=== PATIENT | female | born 1955 | race Caucasian/White ===

== ENCOUNTER → 2016-12-03 | Outpatient (CLI) | payer BC ==
--- NOTE | 2016-12-03 15:18 | MAMMOGRAPHY REPORT ---
BILATERAL DIGITAL SCREENING MAMMOGRAM TOMOSYNTHESIS WITH CAD: 12/03/2016 TECHNIQUE: Breast tomosynthesis in addition to standard 2D mammography was performed. Current study was also evaluated with a Computer Aided Detection (CAD) system. COMPARISON: Comparison is made to exams dated: 12/03/2015 mammogram, 11/29/2014 mammogram, 11/28/2013 m ammogram, 11/25/2012 mammogram, 11/24/2011 mammogram, and 11/21/2010 mammogram - [facility] nter. BREAST COMPOSITION: The tissue of both breasts is heterogeneously dense, which may obscure small mas ses. FINDINGS: No suspicious masses, calcifications, or areas of architectural distortion are noted in ei ther breast. There has been no significant interval change compared to prior exams. IMPRESSION: ACR BI-RADS CATEGORY 1: NEGATIVE There is no mammographic evidence of malignancy. A 1 year screening mammogram is recommended. The pa tient will receive written notification of the results. Approximately 10% of breast cancers are not detected with mammography. A negative mammographic report should not delay biopsy if a clinically suggestive mass is present. Shira Ellison M.D. /:12/03/2016 11:13:57 Wood Room Hand: Jo Ann MATIAS(Laisha)(M), [facility] letter sent: Normal 1/2 BI-RADS Code: ACR BI-RADS Category 1: Negative
== END | disposition home or self-care (01) ==
LOC: C.MAMM 09:59
PROVIDERS: ATTEND Family Medicine
DX: Z12.31 Encounter for screening mammogram for malignant neoplasm of breast (principal)

== ENCOUNTER 2018-03-26 10:35 | Inpatient (IN) ==
--- NOTE | 2018-03-03 13:52 | Anesthesiology Consultation ---
Date of Service March 03, 2018 Assessment & Plan (1) Encounter for pre-operative examination: Chart Review Chart Review: Acceptable Risk for Surgery and Patient seen in Pre Admission Testing Teaching & Discussion Instructed NPO after midnight before surgery, except medications with 15 cc of water. Medication instructions provided according to the PAT guidelines. History Surgery Operation Date: 03/26/18 10:40 Proposed Procedures p Right Total Shoulder Arthroplasty - Jeremías Kang, Height/Weight Height: 5 ft 6 in Weight: 80.1 kg Allergies Allergy/AdvReac Type Severity Reaction Status Date / Time codeine AdvReac NAUSEA/DIZZ Verified 02/26/18 15:04 Y Medications Home Medications Medication Instructions Recorded Confirmed Last Taken amlodipine 5 mg tablet 5 mg PO QAM 12/31/17 02/26/18 Unknown aspirin 81 mg tablet,delayed 81 mg PO DAILY 12/31/17 02/26/18 Unknown release atorvastatin 40 mg tablet 40 mg PO HS 12/31/17 02/26/18 Unknown calcium carbonate-vitamin D3 600 1 tab PO BID 12/31/17 02/26/18 Unknown mg (1,500 mg)-800 unit tablet cholecalciferol (vitamin D3) 2,000 2,000 units PO DAILY 12/31/17 02/26/18 Unknown unit capsule cyclosporine 0.05 % eye drops in a 1 drops OP Q12H 12/31/17 02/26/18 Unknown dropperette fish oil 1,200 mg PO DAILY 12/31/17 02/26/18 Unknown levothyroxine 125 mcg capsule 125 mcg PO QAM 12/31/17 02/26/18 Unknown losartan 100 mg tablet 100 mg PO QAM 12/31/17 02/26/18 Unknown meloxicam 7.5 mg tablet 7.5 mg PO QAM 12/31/17 02/26/18 Unknown metoprolol succinate ER 50 mg 75 mg PO QAM tab 12/31/17 02/26/18 Unknown tablet,extended release 24 hr omeprazole magnesium 20 mg 20 mg PO QAM 12/31/17 02/26/18 Unknown tablet,delayed release ropinirole 4 mg tablet 4 mg PO HS tab 12/31/17 02/26/18 Unknown Flovent Inhaler 1 puff INHALATION UD PRN 02/26/18 02/26/18 Unknown multivitamin [Multiple Vitamins] 1 tab PO DAILY 02/26/18 02/26/18 Unknown vit C,S-Bd-ftuqc-lutein-zeaxan 1 tab PO BID 02/26/18 02/26/18 Unknown [PreserVision AREDS-2] Past Medical History Medical History GERD (gastroesophageal reflux disease) (Chronic) High cholesterol (Chronic) Restless leg syndrome (Chronic) Arthritis BACK Asthma ONLY USES INHALER BEFORE EXERCISE Back problem CORTISONE INJECTION 02/17/18 History of prolonged Q-T interval on ECG Hypertension Hypothyroidism Nausea and vomiting after administration of anesthetic agent Spinal stenosis "MILD" Past Family History Family History Brother Family history of Hodgkin's lymphoma Past Surgical History Surgical History History of Achilles tendon repair & NERVE DECOMPRESSION History of arthroscopy of right knee History of bone graft TIB/FIB History of hammertoe correction History of surgery on extremity L LEG/TIB FIB FX... HAD ALFA PLACED History of surgery on extremity L LEG LENGHTENED/EX FIX AND SINCE REMOVED -- NEEDED SUBSEQUENT TO TIB/FIB FX REPAIR. History of thumb surgery Past Anesthesia History No Hx of Anesthesia Complications (OTHER THAN PONV) and No Family Hx of Anesthesia Complications History of PONV Yes Motion Sickness Screening History of Motion Sickness: No Social History Smoking Status: Never smoker Do You Dip or Chew Tobacco: No Hx Alcohol Use: No Hx Substance Use: No Exercise / Class Metabolic Activity II 4-5 Yardwork/Stairs/Walk up hill Review of Systems Pt denies any recent chest pain, shortness of breath, palpitations, cough, fever or URI. Physical Exam Vital Signs BP: 168/89 (pt is visibly anxious) P: 85 bpm SPO2: 98% RA T: 97.8 F R: 16 ENMT Mouth: + dental bridge (upper R molars) and + dental restorations (crowns); no chipped teeth and no loose teeth Thyromental Distance: < 3.5 Finger Breadths (3) Mallampati Class: IV (III-IV) Neck normal visual inspection; neck extension not limited Respiratory normal respiratory effort Auscultation: lungs clear to auscultation bilaterally Cardiovascular Rate/Rhythm: regular rate and regular rhythm Heart Sounds: no murmur Vessels: no carotid bruit Extremities: no edema Testing Electrocardiogram Date: 03/03/18 NSST abnormality. Abnormal QRS angle, consider primary TWA. Chest X-Ray Date: 03/03/18 Findings: + NAD Laboratory Results 03/03/18 13:32 03/03/18 13:32 Blood Type O Positive 03/03/18 13:32 Antibody Screen NEGATIVE 03/03/18 13:32 PT 10.0 Seconds (9.0-12.0) 03/03/18 13:32 INR 1.0 (0.9-1.1) 03/03/18 13:32 APTT 25.9 Seconds (21.0-31.0) 03/03/18 13:32
--- NOTE | 2018-03-03 14:05 | PAT Medication Instructions ---
Medication Instructions Date of Service March 03, 2018 Home Medications amlodipine 5 mg tablet 5 mg PO QAM aspirin 81 mg tablet 81 mg PO DAILY atorvastatin 40 mg tablet 40 mg PO HS calcium carbonate-vitamin D3 600 1 tab PO BID cholecalciferol (vitamin D3) 2,000 2,000 units PO DAILY cyclosporine 0.05 % eye drops in a 1 drops OP Q12H fish oil 1,200 mg PO DAILY levothyroxine 125 mcg capsule 125 mcg PO QAM losartan 100 mg tablet 100 mg PO QAM meloxicam 7.5 mg tablet 7.5 mg PO QAM metoprolol succinate ER 50 mg 75 mg PO QAM tab omeprazole magnesium 20 mg 20 mg PO QAM ropinirole 4 mg tablet 4 mg PO HS tab Flovent Inhaler 1 puff INHALATION UD PRN multivitamin [Multiple Vitamins] 1 tab PO DAILY [PreserVision AREDS-2] 1 tab PO BID STOP taking 2 weeks before surgery fish oil 1,200 mg PO DAILY [PreserVision AREDS-2] 1 tab PO BID STOP taking 24 hours before surgery ropinirole 4 mg tablet 4 mg PO HS tab DO NOT take the morning of surgery calcium carbonate-vitamin D3 600 1 tab PO BID cholecalciferol (vitamin D3) 2,000 2,000 units PO DAILY losartan 100 mg tablet 100 mg PO QAM multivitamin [Multiple Vitamins] 1 tab PO DAILY Take morning of surgery With a small sip of water, OTHERWISE NOTHING TO EAT OR DRINK AFTER MIDNIGHT: amlodipine 5 mg tablet 5 mg PO QAM aspirin 81 mg tablet 81 mg PO DAILY cyclosporine 0.05 % eye drops in a 1 drops OP Q12H levothyroxine 125 mcg capsule 125 mcg PO QAM metoprolol succinate ER 50 mg 75 mg PO QAM tab omeprazole magnesium 20 mg 20 mg PO QAM Flovent Inhaler 1 puff INHALATION UD PRN (if needed) Take evening before surgery atorvastatin 40 mg tablet 40 mg PO HS calcium carbonate-vitamin D3 600 1 tab PO BID cyclosporine 0.05 % eye drops in a 1 drops OP Q12H Other Notes If you have any questions please call us at [phone] or [phone] or [phone] or [phone]
[2018-03-03 14:29] LABS: Basophils # (auto) 0.02 K/uL (0-0.2); Basophils % (auto) 0.2 %; Eosinophils # (auto) 0.06 K/uL (0-0.5); Eosinophils % (auto) 0.5 %; Hematocrit (blood only) 46.4 % (37-47); Hemoglobin 15.4 g/dL (12.0-16.0); Immature Granulocytes # (auto) 0.04 K/uL (0.00-0.02); Immature Granulocytes % (auto) 0.4 %; Lymphocytes % (auto) 25.6 %; Mean Corpuscular Hgb Conc 33.2 g/dL (32-36); Mean Corpuscular Volume 93.9 fL (80-100); Mean Platelet Volume 10.3 fL (7.4-10.4); Monocytes # (auto) 0.74 K/uL (0.11-0.59); Monocytes % (auto) 6.5 %; Neutrophils # (auto) 7.55 K/uL (1.4-6.5); Neutrophils % (auto) 66.8 %; Platelet Count 263 K/uL (130-400); RDW Coefficient of Variation 13.1 % (11.5-14.5); RDW Standard Deviation 44.9 fL (36.4-46.3); Red Blood Count 4.94 M/uL (4.2-5.4); White Blood Count 11.31 K/uL (4.8-10.8)
--- NOTE | 2018-03-03 14:29 | XRay Report ---
TWO VIEW CHEST CLINICAL HISTORY: Preoperative examination. FINDINGS: PA and lateral chest radiographs are obtained. No prior studies are available for compariso n at the time of dictation. The cardiomediastinal silhouette is unremarkable. The lungs and pleural spaces are clear. There is no pneumothorax. The skeletal structures are osteopenic. The bony thorax a ppears intact. IMPRESSION: No active disease in the chest. Electronically signed by: Lex Romo M.D. 03/03/2018 2:27 PM
[2018-03-03 14:38] LABS: Partial Thromboplastin Time 25.9 Seconds (21.0-31.0)
[2018-03-03 16:17] LABS: BUN Creatinine Ratio 28.4 (10-20); Calcium 9.2 mg/dl (8.5-10.1); Creatinine Clr Calc Pharmacy 77.8 ml/min; Est GFR (African American) 93.1; Est GFR (Non-African American) 80.3; Potassium 3.7 mmol/L (3.5-5.1)
--- NOTE | 2018-03-25 06:47 | History & Physical Report ---
Date of Service March 25, 2018 Assessment & Plan (1) Primary osteoarthritis of right shoulder: We will proceed with a right total shoulder arthroplasty. Postoperatively she will be kept overnight at the hospital for postoperative medical management. She plans to use energy physical therapy upon discharge. Present on Admission?: Yes History of Present Illness Primary Care Provider: Quyen Helton Jacqueline Butcher is a pleasant 63-year-old female who is been dealing with chronic increasing right shoulder pain. Is been really bothering her for the last 6 months. MRI and clinical examination were diagnostic for advanced arthritis of the right shoulder. The MRI images looked much worse and the x-rays looked. After failing conservative treatment she has elected to proceed with a right total shoulder arthroplasty. Allergies Allergy/AdvReac Type Severity Reaction Status Date / Time codeine AdvReac NAUSEA/DIZZ Verified 03/22/18 08:11 Y Home Medications Home Medications Medication Instructions Recorded Confirmed Type amlodipine 5 mg tablet 5 mg PO QAM 12/31/17 03/22/18 History aspirin 81 mg tablet,delayed 81 mg PO DAILY 12/31/17 03/22/18 History release atorvastatin 40 mg tablet 40 mg PO HS 12/31/17 03/22/18 History calcium carbonate-vitamin D3 600 1 tab PO BID 12/31/17 03/22/18 History mg (1,500 mg)-800 unit tablet cholecalciferol (vitamin D3) 2,000 2,000 units PO DAILY 12/31/17 03/22/18 History unit capsule cyclosporine 0.05 % eye drops in a 1 drops OP Q12H 12/31/17 03/22/18 History dropperette fish oil 1,200 mg PO DAILY 12/31/17 03/22/18 History levothyroxine 125 mcg capsule 125 mcg PO QAM 12/31/17 03/22/18 History losartan 100 mg tablet 100 mg PO QAM 12/31/17 03/22/18 History meloxicam 7.5 mg tablet 7.5 mg PO QAM 12/31/17 03/22/18 History metoprolol succinate ER 50 mg 75 mg PO QAM tab 12/31/17 03/22/18 History tablet,extended release 24 hr omeprazole magnesium 20 mg 20 mg PO QAM 12/31/17 03/22/18 History tablet,delayed release ropinirole 4 mg tablet 4 mg PO HS tab 12/31/17 03/22/18 History Flovent Inhaler 1 puff INHALATION UD PRN 02/26/18 03/22/18 History multivitamin [Multiple Vitamins] 1 tab PO DAILY 02/26/18 03/22/18 History vit C,F-Se-ldqxc-lutein-zeaxan 1 tab PO BID 02/26/18 03/22/18 History [PreserVision AREDS-2] Past Med/Surg History Medical History GERD (gastroesophageal reflux disease) (Chronic) High cholesterol (Chronic) Restless leg syndrome (Chronic) Arthritis BACK Asthma ONLY USES INHALER BEFORE EXERCISE Back problem CORTISONE INJECTION 02/17/18 History of prolonged Q-T interval on ECG Hypertension Hypothyroidism Spinal stenosis "MILD" Surgical History History of Achilles tendon repair & NERVE DECOMPRESSION History of arthroscopy of right knee History of bone graft TIB/FIB History of hammertoe correction History of surgery on extremity L LEG/TIB FIB FX... HAD ALFA PLACED History of surgery on extremity L LEG LENGHTENED/EX FIX AND SINCE REMOVED -- NEEDED SUBSEQUENT TO TIB/FIB FX REPAIR. History of thumb surgery Nausea and vomiting after administration of anesthetic agent Family History Brother Family history of Hodgkin's lymphoma Social History marital status: Current Living Situation: Spouse and Other Current Living Situation Comment: DAUGHTER (WITH DOWN SYNDROME) current occupational status: retired Feels Safe at Home: Yes Smoking Status: Never smoker Hx Alcohol Use: No Hx Substance Use: No Beliefs That Will Affect Care: None Preferred Language: Yi Communication Ability: Effective
[~2018-03-26 10:35] MED LIST: ACETAMINOPHEN 500 MG TAB PO SCH; CEFAZOLIN 2000MG 2,000 MG/15 ML SYR IV SCH; FAMOTIDINE 20 MG TAB PO SCH; GABAPENTIN 300 MG x 2 PO SCH; LR 15ML/HR IV SCH; LR 60ML/HR IV SCH; ROPIVACAINE 0.5% 5 MG/ML 30 ML VIAL ONE; ROPIVACAINE 0.5% HCL/PF 150 MG, BUPIVACAINE 0.5% MPF 30 ML, EPINEPHrine 30MG/30ML (OR U... INFIL SCH; TRANEXAMIC ACID 1,000 MG **IV Intra-op IV SCH; TRANEXAMIC ACID 1,000 MG **IV Pre-op IV SCH
[2018-03-26] MEDS ORDERED: LIDOCAINE HCL 2% 2 ML VIAL/AMP(20MG/ML) INFIL ONE (11:36)
[2018-03-26] MEDS ORDERED: PROPOFOL IV EMULSION 10 MG/ML 20 ML VIAL IV ONE (11:36)
[2018-03-26] MEDS ORDERED: MIDAZOLAM HCL 1 MG/ML 2ML VIAL ONE (11:37)
[2018-03-26] MEDS ORDERED: fentaNYL citrate 100 MCG/2 ML VIAL ONE (11:37)
--- NOTE | 2018-03-26 11:49 | History & Physical Bridge Note ---
Date of Service March 26, 2018 History & Physical Bridge Note I have examined the patient, reviewed the History & Physical and in the interval since the performance of the History & Physical I have noted the following changes of clinical significance: no changes noted
[2018-03-26] MEDS ORDERED: ORTHO JOINT ANESTHETIC ONE (12:06)
[2018-03-26] MEDS ORDERED: POVIDONE-IODINE OP SOLN 30 ML BTL ONE (12:07)
[2018-03-26] MEDS ORDERED: ePHEDrine sulfate 50 MG/ML AMP IV PRN (12:19)
[2018-03-26] MEDS ORDERED: fentaNYL citrate 100 MCG/2 ML VIAL IV PRN (12:19)
[2018-03-26] MEDS ORDERED: ONDANSETRON INJ 2 MG/ML 2 ML VIAL IV PRN ×2 (12:19→16:38)
[2018-03-26] MEDS ORDERED: ATROPINE SULFATE 0.1 MG/ML 10ML SYR IV PRN (12:19)
[2018-03-26] MEDS ORDERED: SCOPOLAMINE 1.5 MG TDSY TD ONE (12:31)
[2018-03-26] MEDS ORDERED: SCOPOLAMINE 1.5 MG TDSY ONE (12:31)
[2018-03-26] MEDS ORDERED: SODIUM CHLORIDE 0.9% INJ 10 ML VIAL ONE (13:55)
[2018-03-26] MEDS ORDERED: PHENYLEPHRINE 100MCG/ML 5ML SYR ONE (13:55)
[2018-03-26] MEDS ORDERED: ePHEDrine sulfate 50 MG/ML AMP ONE (13:55)
[2018-03-26] MEDS ORDERED: GLYCOPYRROLATE 0.2 MG/ML VIAL ONE (14:30)
[2018-03-26] MEDS ORDERED: ROCURONIUM BROMIDE 10 MG/ML 5 ML VIAL ONE (14:30)
[2018-03-26] MEDS ORDERED: NEOSTIGMINE METHYLSULFATE 5 MG/5 ML SYR ONE (14:30)
--- NOTE | 2018-03-26 14:43 | Operative Report ---
Post Operative Report Pre & Post Diagnosis Operation Date: 03/26/18 13:00 Pre-Op Diagnosis: Right Shoulder Degenerative Joint Disease Post-Op Diagnosis: Right Shoulder Degenerative Joint Disease Procedure Operation Date: 03/26/18 13:00 Actual Procedures p Right Total Shoulder Replacement--Cemented(Right) - Jeremías Kang DO Surgeon Jeremías Kang DO Compensation Director Jeremías Dong PAC Estimated Blood Loss 250 Findings Consistent with Post-Op Diagnosis Specimens Right humeral head Complications none Disposition Disposition: Recovery Room Indications Guadalupe is a pleasant 63-year-old female who presented my office with a 6-month history of increasing right shoulder pain. MRI and clinical examination were diagnostic for primary osteoarthritis of the right shoulder. After failing conservative treatment, she elected to proceed with a right total shoulder arthroplasty. Description of Procedure Implants used: I used a Biomet Comprehensive total shoulder arthroplasty system with a size 8 press fit mini humeral stem, a size 42 x 21 eccentric humeral head, and a small size glenoid with a Regenerex peg. The glenoid was cemented in place with Palacos G cement. The patient arrived at [facility] for the above procedure. There were seen in the preoperative holding area and the operative extremity was identified and signed. They were given a preoperative antibiotic and an interscalene nerve block. They were taken back to the operating room, laid on table in supine position, and put under general anesthesia. They were then put into the beachchair position. The shoulder was then prepped and draped in sterile fashion. A timeout was done and the patient in the operative extremity was properly identified. A deltopectoral approach was used. Dissection was taken down through the fascia and the deltoid was retracted laterally and the conjoined tendon was retracted medially. The anterior shoulder was exposed. The long head of the biceps tendon was tenodesed to the upper border of the pectoralis major. The subscapularis was then released off the lesser tuberosity with a centimeter of cuff tissue remaining. The inferior capsule was released and the humeral head was dislocated. The rotator cuff was inspected and intact. A canal finding reamer was sent down the center of the humeral canal. Sequential reaming up to a size 8 reamer was done. Offset reamer a proximal humeral resection guide was placed. The proximal humerus was resected at 135 of inclination and 30 of retroversion. Inferior osteophytes were then removed and the glenoid was exposed. Time was spent doing an appropriate labral release. The glenoid measured to be a size small. A 3.2 mm Steinmann pin was placed in the central hole of the glenoid vault pin guide. The glenoid was then reamed with a propeller reamer. The central post cutter was then used to prepare for the central boss. The cannulated peripheral peg drill guide was then placed and 3 peg holes were drilled. The final size small glenoid was then cemented in place with Palacos G cement. Surrounding soft tissues were then injected with 100 cc of an orthopedic pain control cocktail. Once cement had dried the proximal humerus was once again exposed. Sequential broaching of the humerus up to a size 8 broach was done. Off that broach a size 42 x 21 eccentric humeral head was trialed. The shoulder was then reduced , brought through a full range of motion and felt to be stable. The shoulder was then dislocated and the broach was removed. The final size 8 mini humeral stem implant was then impacted into place. A size 42 x 21 eccentric humeral head was then impacted onto the humeral stem. The shoulder was then reduced and once again brought through a full range of motion and felt to be stable. The subscapularis was then tenodesed back to the lesser tuberosity with transosseous FiberWire sutures and side to side sutures with the arm in 45 of external rotation. 2 sutures were placed in the lateral rotator interval. A dilute betadyne lavage was then done for 3 minutes. The joint was then irrigated with normal saline solution. Hemostasis was obtained. The skin was then closed with 2-0 Vicryl, 3-0V lock suture, and doug. A soft dressing was placed as well as a regular arm sling. The patient was then extubated and transferred to a hospital bed. There were taken to the postanesthesia care unit in stable condition. The tolerated the procedure well. I attest to the content of the Intraoperative Record and any orders documented therein. Any exceptions are noted below.
--- NOTE | 2018-03-26 15:34 | XRay Report ---
XR shoulder RT min 2V routine CLINICAL HISTORY: Post shoulder surgery COMPARISON: None. DISCUSSION: There are postsurgical changes of a total right shoulder arthroplasty. There are overlyin g skin doug. There is no dislocation. There is air within the soft tissues consistent with recent surgery. IMPRESSION: Postsurgical changes of a total right shoulder arthroplasty. No evidence of dislocation. Electronically signed by: Derek Zimmerman M.D. 03/26/2018 3:33 PM
[2018-03-26] MEDS ORDERED: METOCLOPRAMIDE HCL INJ 5 MG/ML 2 ML VIAL ONE (15:38)
[2018-03-26] MEDS ORDERED: METOCLOPRAMIDE HCL INJ 5 MG/ML 2 ML VIAL IV PRN ×2 (15:43→16:38)
--- NOTE | 2018-03-26 16:32 | Anesthesiology Progress Note ---
Date of Service March 26, 2018 Anesthesia Post Procedure Vital Signs Vital Signs: Temp Pulse Pulse Resp BP Pulse Ox 03/26/18 16:00 69 13 118/66 95 03/26/18 15:50 97.2 F L 72 16 134/75 98 03/26/18 15:40 86 18 157/80 H 93 03/26/18 15:30 85 17 157/84 H 94 03/26/18 15:20 93 H 19 167/90 H 100 03/26/18 15:10 97.0 F L 104 H 15 170/109 H 100 03/26/18 11:38 97.7 F 85 18 149/93 H 97 Pain Intensity Right Shoulder: Pain Intensity: 5 Notes Mental Status: alert / awake / arousable and participated in evaluation Patient Amnestic to Procedure: Yes Nausea / Vomiting: adequately controlled Pain: adequately controlled Airway Patency, RR, SpO2: stable & adequate BP & HR: stable & adequate Hydration State: stable & adequate Anesthetic Complications: no major complications apparent and Pt Satisfied with anesthetic care
[2018-03-26] MEDS ORDERED: MoRPHine SULFATE 2 MG/ML CARP IV PRN (16:38)
[2018-03-26] MEDS ORDERED: BISACODYL 10 MG SUPP PR PRN (16:38)
[2018-03-26] MEDS ORDERED: POLYETHYLENE (MIRALAX) 17 GM PACK PO PRN (16:38)
[2018-03-26] MEDS ORDERED: MAGNESIUM HYDROXIDE SUSP 30 ML UDC PO PRN (16:38)
[2018-03-26] MEDS ORDERED: TRAMADOL HCL 50 MG TABLET PO PRN (16:38)
[2018-03-26] MEDS ORDERED: FLUTICASONE HFA 110MCG INHALER INH PRN (17:15)
[2018-03-26] MEDS: KETOROLAC TROMETHAMINE 15 MG/ML VIAL IV SCH ×2 (17:46→23:34)
[2018-03-26] MEDS: POTASSIUM CHLORIDE 10 MEQ in SODIUM CHLORIDE 0.9% 1000ML 1,000 ML IV SCH (17:46)
[2018-03-26] MEDS: CHECK SCOPOLAMINE PATCH PLACEMENT SCH ×2 (17:46→23:33)
[2018-03-26] MEDS ORDERED: ROPINIROLE HCL 1 MG TABLET PO SCH (18:00)
[2018-03-26] MEDS: CEFAZOLIN 2000MG 2,000 MG/15 ML SYR IV SCH (20:36)
[2018-03-26] MEDS: ACETAMINOPHEN 500 MG TAB PO SCH (20:41)
[2018-03-26] MEDS: DOCUSATE SODIUM 100 MG CAP PO SCH (20:41)
[2018-03-26] MEDS ORDERED: SENNA 8.6 MG TAB PO SCH (21:00)
[2018-03-26] MEDS ORDERED: ATORVASTATIN 40 MG TAB PO SCH (21:00)
[2018-03-26] MEDS: RESTASIS: ORDER AWAITING ACTION SCH (23:33)
[2018-03-27] MEDS: KETOROLAC TROMETHAMINE 15 MG/ML VIAL IV SCH (05:16)
[2018-03-27] MEDS: CEFAZOLIN 2000MG 2,000 MG/15 ML SYR IV SCH (05:20)
[2018-03-27] MEDS: ACETAMINOPHEN 500 MG TAB PO SCH (05:22)
[2018-03-27] MEDS: POTASSIUM CHLORIDE 10 MEQ in SODIUM CHLORIDE 0.9% 1000ML 1,000 ML IV SCH (05:23)
[2018-03-27] MEDS ORDERED: COUGH DROP (SUGAR FREE) LOZ 24 LOZ/1 BOX BUCCAL PRN (05:28)
[2018-03-27 06:08] LABS: Hematocrit (blood only) 38.3 % (37-47); Hemoglobin 12.7 g/dL (12.0-16.0); Immature Granulocytes # (auto) 0.02 K/uL (0.00-0.02); Immature Granulocytes % (auto) 0.3 %; Lymphocytes # (auto) 0.56 K/uL (1.2-3.4); Lymphocytes % (auto) 7.4 %; Mean Corpuscular Hgb Conc 33.2 g/dL (32-36); Mean Corpuscular Volume 93.4 fL (80-100); Mean Platelet Volume 9.4 fL (7.4-10.4); Monocytes # (auto) 0.36 K/uL (0.11-0.59); Monocytes % (auto) 4.8 %; Neutrophils # (auto) 6.61 K/uL (1.4-6.5); Neutrophils % (auto) 87.5 %; Platelet Count 177 K/uL (130-400); RDW Coefficient of Variation 13.4 % (11.5-14.5); White Blood Count 7.55 K/uL (4.8-10.8)
[2018-03-27] MEDS ORDERED: LEVOTHYROXINE SODIUM 125 MCG TABLET PO SCH (06:30)
[2018-03-27 06:43] LABS: BUN Creatinine Ratio 18.5 (10-20); Calcium 8.2 mg/dl (8.5-10.1); Creatinine Clr Calc Pharmacy 69.1 ml/min; Est GFR (African American) 81.6; Est GFR (Non-African American) 70.4; Potassium 3.6 mmol/L (3.5-5.1)
[2018-03-27] MEDS: CHECK SCOPOLAMINE PATCH PLACEMENT SCH (08:17)
[2018-03-27] MEDS: RESTASIS: ORDER AWAITING ACTION SCH (08:17)
[2018-03-27] MEDS: DOCUSATE SODIUM 100 MG CAP PO SCH (08:45)
[2018-03-27] MEDS ORDERED: MULTIVITAMIN TAB PO SCH (09:00)
[2018-03-27] MEDS ORDERED: METOPROLOL SUCC 50MG EXT REL TAB PO SCH (09:00)
[2018-03-27] MEDS ORDERED: AMLODIPINE BESYLATE 5 MG TAB PO SCH (09:00)
[2018-03-27] MEDS ORDERED: PANTOprazole 40 MG TAB PO SCH (09:00)
[2018-03-27] MEDS ORDERED: LOSARTAN POTASSIUM 50 MG TAB PO SCH (09:00)
[2018-03-27] MEDS ORDERED: ASPIRIN 81 MG ECTAB PO SCH (09:00)
--- NOTE | 2018-03-27 09:10 | Orthopedic Progress Note ---
Date of Service March 27, 2018 Assessment & Plan (1) Primary osteoarthritis of right shoulder: Overall she is doing fairly well. She is shoulder. She will be seen by physical therapy this morning. We will discharge her to home today with energy physical therapy. I will give her tramadol to go home with. She will follow- up with orthopedics in 2 weeks. Present on Admission?: Yes Gregory Butcher was seen and examined at bedside this morning. Overall she is doing fairly well. She is not having much pain in the right shoulder. She is sitting up eating breakfast. She has no complaints. Physical Exam 2 Vital Signs (Past 24 Hours): Last Vital Signs Temp 36.7 C 03/27/18 07:48 Pulse 71 03/27/18 07:48 Resp 17 03/27/18 07:48 BP 112/64 03/27/18 07:48 Pulse Ox 97 03/27/18 07:48 Musculoskeletal: On physical examination of the right shoulder, the dressing is clean and dry. She is wearing her sling as instructed. Her radial, median, and ulnar nerves are all checked and intact at her wrist. Her axillary nerve was not checked yet. Results & Data Laboratory Results H & H 03/03/18 03/27/18 Range/Units 13:32 05:38 Hgb 15.4 12.7 (12.0-16.0) g/dL Hct 46.4 38.3 (37-47) % Coagulation 03/03/18 Range/Units 13:32 INR 1.0 (0.9-1.1) Diagnostic Findings Postoperative x-rays of the right shoulder show the prosthesis to be in anatomic alignment without any evidence of fracture, dislocation, or loosening.
--- NOTE | 2018-03-27 09:11 | Discharge Summary ---
Date of Service March 27, 2018 Admission HPI Per Admitting Provider Guadalupe is a pleasant 63-year-old female who is been dealing with chronic increasing right shoulder pain. Is been really bothering her for the last 6 months. MRI and clinical examination were diagnostic for advanced arthritis of the right shoulder. The MRI images looked much worse and the x-rays looked. After failing conservative treatment she has elected to proceed with a right total shoulder arthroplasty. Specialty Data Orthopedic H & H 03/03/18 03/27/18 Range/Units 13:32 05:38 Hgb 15.4 12.7 (12.0-16.0) g/dL Hct 46.4 38.3 (37-47) % Coagulation 03/03/18 Range/Units 13:32 INR 1.0 (0.9-1.1) Discharge Data Consultations 03/26/18 16:38 Consult Case Management - Discharge Planning Routine Procedures Performed Operation Date: 03/26/18 13:00 Actual Procedures p Right Total Shoulder Replacement--Cemented(Right) - Jeremías Kang DO Hospital Course (1) Primary osteoarthritis of right shoulder: On March 26, 2018 Guadalupe arrived at [facility] and underwent a right total shoulder arthroplasty without complication. She had a general anesthetic and a right interscalene nerve block. Postoperatively she was discharged to general orthopedic floors. Her hospital course is uneventful. On postop day #1 her H&H was stable and her pain was well controlled. She was able to participate well with physical therapy. She was discharged home with energy physical therapy. She will follow-up with orthopedics in 2 weeks. Discharge Instructions Home Medications Medication Instructions Recorded Confirmed amlodipine 5 mg tablet 5 mg PO QAM 12/31/17 03/26/18 aspirin 81 mg tablet,delayed 81 mg PO DAILY 12/31/17 03/26/18 release atorvastatin 40 mg tablet 40 mg PO HS 12/31/17 03/26/18 calcium carbonate-vitamin D3 600 1 tab PO BID 12/31/17 03/26/18 mg (1,500 mg)-800 unit tablet cholecalciferol (vitamin D3) 2,000 2,000 units PO DAILY 12/31/17 03/26/18 unit capsule cyclosporine 0.05 % eye drops in a 1 drops OP Q12H 12/31/17 03/26/18 dropperette fish oil 1,200 mg PO DAILY 12/31/17 03/26/18 levothyroxine 125 mcg capsule 125 mcg PO QAM 12/31/17 03/26/18 losartan 100 mg tablet 100 mg PO QAM 12/31/17 03/26/18 meloxicam 7.5 mg tablet 7.5 mg PO QAM 12/31/17 03/26/18 metoprolol succinate ER 50 mg 75 mg PO QAM tab 12/31/17 03/26/18 tablet,extended release 24 hr omeprazole magnesium 20 mg 20 mg PO QAM 12/31/17 03/26/18 tablet,delayed release ropinirole 4 mg tablet 4 mg PO HS tab 12/31/17 03/26/18 Flovent Inhaler 1 puff INHALATION UD PRN 02/26/18 03/26/18 multivitamin [Multiple Vitamins] 1 tab PO DAILY 02/26/18 03/26/18 Previous Rx's Medication Instructions Recorded tramadol 50 mg PO Q4H PRN #40 tab 03/27/18
== END 2018-03-27 12:33 | disposition home or self-care (01) | DRG 483 ==
LOC: ASU 10:35 → 3E 14:48

== ENCOUNTER 2018-12-31 07:50 | Inpatient (IN) ==
--- NOTE | 2018-12-02 14:57 | PAT Medication Instructions ---
Medication Instructions Date of Service December 02, 2018 Home Medications aspirin 81 mg tablet,delayed release 81 mg PO DAILY atorvastatin 40 mg tablet 40 mg PO HS calcium carbonate-vitamin D3 600 mg (1,500 mg)-800 unit tablet 1 tab PO BID cholecalciferol (vitamin D3) 2,000 unit capsule 2,000 units PO DAILY levothyroxine 125 mcg capsule 125 mcg PO QAM losartan 100 mg tablet 100 mg PO QAM meloxicam 7.5 mg tablet 7.5 mg PO QAM metoprolol succinate ER 50 mg tablet,extended release 24 hr 75 mg PO QAM omeprazole magnesium 20 mg tablet,delayed release 20 mg PO QAM multivitamin [Multiple Vitamins] 1 tab PO DAILY fluticasone propionate 100 mcg/actuation blister powder for inhalation 1 inha INH UD PRN omega-3 fatty acids 1,000 mg capsule 1,000 mg PO BID cyanocobalamin (vitamin B-12) [Vitamin B-12] 1,000 mcg PO QAM hydrochlorothiazide 25 mg PO QAM lorazepam [Ativan] 0.5 mg PO UD PRN magnesium 500 mg PO QAM ropinirole 4 mg PO HS [PreserVision AREDS-2] 1 tab PO BID ASK your surgeon for instructions meloxicam 7.5 mg tablet 7.5 mg PO QAM STOP taking 2 weeks before surgery (or as soon as possible if surgery is within 2 weeks) omega-3 fatty acids 1,000 mg capsule 1,000 mg PO BID [PreserVision AREDS-2] 1 tab PO BID STOP taking 24 hours before surgery ropinirole 4 mg PO HS DO NOT take the morning of surgery calcium carbonate-vitamin D3 600 mg (1,500 mg)-800 unit tablet 1 tab PO BID cholecalciferol (vitamin D3) 2,000 unit capsule 2,000 units PO DAILY losartan 100 mg tablet 100 mg PO QAM multivitamin [Multiple Vitamins] 1 tab PO DAILY cyanocobalamin (vitamin B-12) [Vitamin B-12] 1,000 mcg PO QAM hydrochlorothiazide 25 mg PO QAM magnesium 500 mg PO QAM Take morning of surgery With a small sip of water, OTHERWISE NOTHING TO EAT OR DRINK AFTER MIDNIGHT: aspirin 81 mg tablet,delayed release 81 mg PO DAILY levothyroxine 125 mcg capsule 125 mcg PO QAM metoprolol succinate ER 50 mg tablet,extended release 24 hr 75 mg PO QAM omeprazole magnesium 20 mg tablet,delayed release 20 mg PO QAM fluticasone propionate 100 mcg/actuation blister powder for inhalation 1 inha INH UD PRN (if needed) lorazepam [Ativan] 0.5 mg PO UD PRN (if needed) Take evening before surgery atorvastatin 40 mg tablet 40 mg PO HS calcium carbonate-vitamin D3 600 mg (1,500 mg)-800 unit tablet 1 tab PO BID fluticasone propionate 100 mcg/actuation blister powder for inhalation 1 inha INH UD PRN (if needed) lorazepam [Ativan] 0.5 mg PO UD PRN (if needed) Other Notes If you have any questions please call us at [phone] or [phone] or [phone] or [phone]
--- NOTE | 2018-12-06 11:07 | Anesthesiology Consultation ---
Date of Service December 06, 2018 Assessment & Plan (1) Encounter for pre-operative examination: - ASA instructions: okay to continue ASA perioperatively per surgeon - Hx of glidescope intubation: Right TSA: 03/26/18: easy mask vent, DVL with MAC 3 could not see beyond epiglottis, changed to Rdz 2 and view unchanged- no improvement with CCP, uneventful Glidescope #3, ETT 7.0 at [facility] Chart Review Chart Review: Pending: Refer to Additional Notes / Consult section (pending preop testing (labs, EKG)) and Patient seen in Pre Admission Testing Teaching & Discussion Pre-Anesthesia Teaching/Discussion Notes: Instructed NPO after midnight before surgery,except medications with 15 cc of water. Medication instructions provided according to the PAT guidelines. History Surgery Operation Date: 12/31/18 10:00 Proposed Procedures p Right Anterior Total Hip Arthroplasty - Jeremías Kang, Height/Weight Height: 5 ft 6 in Weight: 81.4 kg Allergies Allergy/AdvReac Type Severity Reaction Status Date / Time codeine AdvReac Unknown NAUSEA/DIZZ Verified 12/06/18 11:19 INESS Medications Home Medications Medication Instructions Recorded Confirmed Last Taken aspirin 81 mg tablet,delayed 81 mg PO DAILY 12/31/17 11/29/18 03/12/18 07:00 release atorvastatin 40 mg tablet 40 mg PO HS 12/31/17 11/29/18 03/25/18 19:00 calcium carbonate-vitamin D3 600 1 tab PO BID 12/31/17 11/29/18 03/25/18 19:00 mg (1,500 mg)-800 unit tablet cholecalciferol (vitamin D3) 2,000 2,000 units PO DAILY 12/31/17 11/29/18 03/25/18 07:00 unit capsule levothyroxine 125 mcg capsule 125 mcg PO QAM 12/31/17 11/29/18 03/26/18 07:00 losartan 100 mg tablet 100 mg PO QAM 12/31/17 11/29/18 03/25/18 07:00 meloxicam 7.5 mg tablet 7.5 mg PO QAM 12/31/17 11/29/18 03/12/18 07:00 metoprolol succinate ER 50 mg 75 mg PO QAM tab 12/31/17 11/29/18 03/26/18 07:00 tablet,extended release 24 hr omeprazole magnesium 20 mg 20 mg PO QAM 12/31/17 11/29/18 03/26/18 07:00 tablet,delayed release multivitamin [Multiple Vitamins] 1 tab PO DAILY 02/26/18 11/29/18 03/25/18 07:00 fluticasone propionate 100 1 inha INH UD PRN 06/25/18 11/29/18 Unknown mcg/actuation blister powder for inhalation omega-3 fatty acids 1,000 mg 1,000 mg PO BID cap 06/25/18 11/29/18 Unknown capsule cyanocobalamin (vitamin B-12) 1,000 mcg PO QAM 11/29/18 11/29/18 Unknown [Vitamin B-12] hydrochlorothiazide 25 mg PO QAM 11/29/18 11/29/18 Unknown lorazepam [Ativan] 0.5 mg PO UD PRN 11/29/18 11/29/18 Unknown magnesium 500 mg PO QAM 11/29/18 11/29/18 Unknown ropinirole 4 mg PO HS 11/29/18 11/29/18 Unknown vit C,J-Ro-dnajk-lutein-zeaxan 1 tab PO BID 11/29/18 11/29/18 Unknown [PreserVision AREDS-2] Past Medical History Medical History History of difficult intubation Right TSA: 03/26/18: easy mask vent, DVL with MAC 3 could not see beyond epiglottis, changed to Rdz 2 and view unchanged- no improvement with CCP, uneventful Glidescope #3, ETT 7.0 at [facility] Anxiety Asthma inhaler PRN exercise, stable GERD (gastroesophageal reflux disease) controlled High cholesterol History of prolonged Q-T interval on ECG Hypertension + "white coat syndrome" Hypothyroidism Osteoarthritis Restless leg syndrome Spinal stenosis "mild" Exercise / Class Metabolic Activity II 4-5 Yardwork/Stairs/Walk up hill Past Family History Family History Brother Family history of Hodgkin's lymphoma Family history of diabetes mellitus (DM) Mother Family history of diabetes mellitus (DM) Son Family history of diabetes mellitus (DM) Past Surgical History Surgical History History of Achilles tendon repair & NERVE DECOMPRESSION History of arthroscopy of right knee History of bone graft TIB/FIB History of cataract surgery History of colonoscopy History of hammertoe correction History of surgery on extremity L LEG/TIB FIB HARDWARE (2/2 FRACTURE) History of surgery on extremity L LEG LENGTHENED/EX FIX (SUBSEQUENT HARDWARE REMOVAL) + SUBSEQUENT REVISION History of thumb surgery S/P shoulder replacement Past Anesthesia History Difficult Airway (Right TSA: 03/26/18: easy mask vent, DVL with MAC 3 could not see beyond epiglottis, changed to Rdz 2 and view unchanged- no improvement with CCP, uneventful Glidescope #3, ETT 7.0 at [facility]) and No Family Hx of Anesthesia Complications History of PONV No Hx of Motion Sickness and History of PONV (*improvement with zofran previously*) Social History Smoking Status: Never smoker Do You Dip or Chew Tobacco: No Hx Alcohol Use: Yes Alcohol type: wine alcohol intake frequency: holidays/special occasions only Hx Substance Use: No substance use type: does not use Review of Systems Reflux controlled. Patient denies chest pain, shortness of breath, cough, wheezing, palpitations. Physical Exam Vital Signs VITALS BP 167/83 P 73 TEMP 97.8 SP02 100%RA RESP 18 PHYSICAL Full neck and c-spine range of motion. Full TMJ range of motion. TMD 3 finger breaths Mallampati Score 4 Dentition: intact, crowns several "all over," upper right side permanent bridge Lungs: clear throughout to auscultation Cardiac: regular rate and rhythm, no murmurs noted Spine: normal Carotid arteries: negative bruit Extremities: no edema Testing Chest X-Ray Date: 03/03/18 Findings: + NAD
[2018-12-06 12:36] LABS: Basophils # (auto) 0.02 K/uL (0-0.2); Basophils % (auto) 0.3 %; Eosinophils # (auto) 0.09 K/uL (0-0.5); Eosinophils % (auto) 1.3 %; Hematocrit (blood only) 42.6 % (37-47); Hemoglobin 14.5 g/dL (12.0-16.0); Immature Granulocytes # (auto) 0.03 K/uL (0.00-0.02); Immature Granulocytes % (auto) 0.4 %; Lymphocytes # (auto) 2.54 K/uL (1.2-3.4); Lymphocytes % (auto) 36.2 %; Mean Corpuscular Hemoglobin 31.9 pg (25-34); Mean Corpuscular Volume 93.8 fL (80-100); Mean Platelet Volume 10.2 fL (7.4-10.4); Monocytes # (auto) 0.66 K/uL (0.11-0.59); Monocytes % (auto) 9.4 %; Neutrophils # (auto) 3.67 K/uL (1.4-6.5); Neutrophils % (auto) 52.4 %; Platelet Count 220 K/uL (130-400); RDW Coefficient of Variation 12.5 % (11.5-14.5); RDW Standard Deviation 42.6 fL (36.4-46.3); Red Blood Count 4.54 M/uL (4.2-5.4); White Blood Count 7.01 K/uL (4.8-10.8)
[2018-12-06 12:54] LABS: Partial Thromboplastin Time 27.3 Seconds (21.0-31.0); Prothrombin Time 10.3 Seconds (9.0-12.0)
[2018-12-06 13:03] LABS: BUN Creatinine Ratio 22.2 (10-20); Calcium 9.1 mg/dl (8.5-10.1); Creatinine Clr Calc Pharmacy 71.1 ml/min; Est GFR (African American) 82.7; Est GFR (Non-African American) 71.4; Potassium 3.7 mmol/L (3.5-5.1)
--- NOTE | 2018-12-31 06:48 | History & Physical Report ---
Date of Service December 31, 2018 Assessment & Plan (1) Osteoarthritis of right hip: We will proceed with a right anterior total hip arthroplasty. Postoperatively she will be started on aspirin for DVT prophylaxis. She will be kept overnight in the hospital for postop medical management. She plans to use energy physical therapy upon discharge. Present on Admission?: Yes History of Present Illness Chief Complaint: Primary osteoarthritis of the right hip Primary Care Provider: Quyen Phillips DO Guadalupe is a pleasant 63-year-old female who is been dealing with chronic increasing right hip and groin pain. X-rays and clinical examination have been diagnostic for primary osteoarthritis of the right hip. After failing conservative treatment, she has elected to proceed with a right anterior total hip arthroplasty. Allergies Allergy/AdvReac Type Severity Reaction Status Date / Time codeine AdvReac Unknown NAUSEA/DIZZ Verified 12/06/18 11:19 INESS Home Medications Home Medications Medication Instructions Recorded Confirmed Type aspirin 81 mg tablet,delayed 81 mg PO DAILY 12/31/17 11/29/18 History release atorvastatin 40 mg tablet 40 mg PO HS 12/31/17 11/29/18 History calcium carbonate-vitamin D3 600 1 tab PO BID 12/31/17 11/29/18 History mg (1,500 mg)-800 unit tablet cholecalciferol (vitamin D3) 2,000 2,000 units PO DAILY 12/31/17 11/29/18 History unit capsule levothyroxine 125 mcg capsule 125 mcg PO QAM 12/31/17 11/29/18 History losartan 100 mg tablet 100 mg PO QAM 12/31/17 11/29/18 History meloxicam 7.5 mg tablet 7.5 mg PO QAM 12/31/17 11/29/18 History metoprolol succinate ER 50 mg 75 mg PO QAM tab 12/31/17 11/29/18 History tablet,extended release 24 hr omeprazole magnesium 20 mg 20 mg PO QAM 12/31/17 11/29/18 History tablet,delayed release multivitamin [Multiple Vitamins] 1 tab PO DAILY 02/26/18 11/29/18 History fluticasone propionate 100 1 inha INH UD PRN 06/25/18 11/29/18 History mcg/actuation blister powder for inhalation omega-3 fatty acids 1,000 mg 1,000 mg PO BID cap 06/25/18 11/29/18 History capsule cyanocobalamin (vitamin B-12) 1,000 mcg PO QAM 11/29/18 11/29/18 History [Vitamin B-12] hydrochlorothiazide 25 mg PO QAM 11/29/18 11/29/18 History lorazepam [Ativan] 0.5 mg PO UD PRN 11/29/18 11/29/18 History magnesium 500 mg PO QAM 11/29/18 11/29/18 History ropinirole 4 mg PO HS 11/29/18 11/29/18 History vit C,H-Sl-wjuyu-lutein-zeaxan 1 tab PO BID 11/29/18 11/29/18 History [PreserVision AREDS-2] Past Med/Surg History Medical History History of difficult intubation Right TSA: 03/26/18: easy mask vent, DVL with MAC 3 could not see beyond epiglottis, changed to Rdz 2 and view unchanged- no improvement with CCP, uneventful Glidescope #3, ETT 7.0 at [facility] Anxiety Asthma inhaler PRN exercise, stable GERD (gastroesophageal reflux disease) controlled High cholesterol History of prolonged Q-T interval on ECG Hypertension + "white coat syndrome" Hypothyroidism Osteoarthritis Restless leg syndrome Spinal stenosis "mild" Surgical History History of Achilles tendon repair & NERVE DECOMPRESSION History of arthroscopy of right knee History of bone graft TIB/FIB History of cataract surgery History of colonoscopy History of hammertoe correction History of surgery on extremity L LEG/TIB FIB HARDWARE (2/2 FRACTURE) History of surgery on extremity L LEG LENGTHENED/EX FIX (SUBSEQUENT HARDWARE REMOVAL) + SUBSEQUENT REVISION History of thumb surgery S/P shoulder replacement Family History Brother Family history of Hodgkin's lymphoma Family history of diabetes mellitus (DM) Mother Family history of diabetes mellitus (DM) Son Family history of diabetes mellitus (DM) Social History Preferred Language: [place] Communication Ability: Effective Visual Impairment: No Limitations Hearing Ability: Normal Return Agent Required: No Beliefs That Will Affect Care: None marital status: Current Living Situation: Spouse and Other Current Living Situation Comment: DAUGHTER (WITH DOWN SYNDROME) current occupational status: retired Other Information That Helps Us Care for You: No Feels Safe at Home: Yes Smoking Status: Never smoker Do You Dip or Chew Tobacco: No ; Hx Alcohol Use: No Hx Substance Use: No Review of Systems All systems reviewed & are unremarkable except as noted in HPI & below Physical Exam Constitutional: WD/WN, vitals as above Eyes: PERRL, conjunctivae normal, anicteric sclerae ENMT: external ear and nose normal, oropharynx normal Neck: trachea midline, no thyromegaly Respiratory: normal respiratory effort Cardiovascular: RRR, no murmur, no edema Gastrointestinal (Abdomen): normal bowel sounds, soft, nontender, no hepatosplenomegaly Musculoskeletal: Physical examination of the right hip reveals decreased range of motion with flexion, internal and external rotation. There is significant groin pain with forced internal rotation of the hip his leg lengths are essentially equal. Psychiatric: A+Ox3, euthymic affect Results & Data Diagnostic Findings Radiographs of the right hip and pelvis demonstrate advanced osteoarthritis with joint space narrowing osteophyte formation and [id number] articulation.
[~2018-12-31 07:50] MED LIST changes: +BUPIVACAINE 0.5 % 5 MG/1 ML PF 10ML VIAL ONE; -GABAPENTIN 300 MG x 2 PO SCH; +GABAPENTIN 600 MG DOSE PO SCH; -LR 15ML/HR IV SCH; +LR 500ML BOLUS, THEN 15ML/HR IV SCH; -ROPIVACAINE 0.5% 5 MG/ML 30 ML VIAL ONE; -ROPIVACAINE 0.5% HCL/PF 150 MG, BUPIVACAINE 0.5% MPF 30 ML, EPINEPHrine 30MG/30ML (OR U... INFIL SCH; +ROPIVACAINE 0.5% HCL/PF 150 MG, BUPIVACAINE 0.5% MPF 30 ML, EPINEPHrine 30MG/30ML (OR U... INSTIL SCH
[2018-12-31] MEDS ORDERED: LIDOCAINE HCL 2% 2 ML VIAL/AMP(20MG/ML) INFIL ONE (08:29)
[2018-12-31] MEDS ORDERED: fentaNYL citrate 100 MCG/2 ML VIAL ONE (08:29)
[2018-12-31] MEDS ORDERED: PROPOFOL IV EMULSION 10 MG/ML 20 ML VIAL IV ONE ×2 (08:29→10:25)
[2018-12-31] MEDS ORDERED: MIDAZOLAM HCL 1 MG/ML 2ML VIAL ONE (08:29)
[2018-12-31] MEDS ORDERED: ORTHO JOINT ANESTHETIC ONE (08:59)
[2018-12-31] MEDS ORDERED: ePHEDrine sulfate 50 MG/ML AMP IV PRN (09:07)
[2018-12-31] MEDS ORDERED: PROMETHAZINE HCL 6.25 MG in SODIUM CHLORIDE 0.9% 50 ML IV PRN (09:07)
[2018-12-31] MEDS ORDERED: fentaNYL citrate 100 MCG/2 ML VIAL IV PRN (09:07)
[2018-12-31] MEDS ORDERED: ATROPINE SULFATE 0.1 MG/ML 10ML SYR IV PRN (09:07)
[2018-12-31] MEDS ORDERED: ONDANSETRON INJ 2 MG/ML 2 ML VIAL IV PRN ×2 (09:07→13:01)
[2018-12-31] MEDS ORDERED: KETAMINE HCL INJ 50 MG/ML 10 ML VIAL ONE (10:17)
[2018-12-31] MEDS ORDERED: ONDANSETRON INJ 2 MG/ML 2 ML VIAL ONE (10:27)
[2018-12-31] MEDS ORDERED: ePHEDrine sulfate 50 MG/ML AMP ONE (10:50)
[2018-12-31] MEDS ORDERED: SODIUM CHLORIDE 0.9% INJ 10 ML VIAL ONE (10:52)
--- NOTE | 2018-12-31 11:18 | Operative Report ---
Post Operative Report Pre & Post Diagnosis Operation Date: 12/31/18 10:25 Pre-Op Diagnosis: RIGHT HIP DEGENERATIVE JOINT DISEASE Post-Op Diagnosis: RIGHT HIP DEGENERATIVE JOINT DISEASE I identified the patient and participated in the time-out.: Yes Procedure Operation Date: 12/31/18 10:25 Actual Procedures p Right Anterior Total Hip Arthroplasty(Right) - Jeremías Kang DO Surgeon Jeremías Kang DO Staff Anesthesiologist Jeremías Dong PAC Estimated Blood Loss 150 Findings Consistent with Post-Op Diagnosis Specimens Right femoral head Complications none Disposition Disposition: Recovery Room Indications Guadalupe is a 63-year-old female who presented my office with complaints of chronic increasing right hip and groin pain. X-rays and clinical examination were diagnostic for primary osteoarthritis of the right hip. After failing conservative treatment, she elected to proceed with a right anterior total hip arthroplasty. Description of Procedure Implants used Biomet Taperloc total hip arthroplasty system with a size 6 standard offset Taperloc stem, a 50 mm G7 cup with a 25mm screw, an E1 polyethylene liner, a 36 mm ceramic head with a -3 neck. Patient arrived at the hospital for the above procedure. They were seen in the preoperative holding area and the operative extremity was identified and signed. They were given a spinal anesthetic. They were given a preoperative antibiotic and TXA. They were taken back To the operating room and laid on the table in the supine position. The leg was brought out through a Puristst leg positioner. The hip was then prepped and draped in sterile fashion. A timeout was done and the patient and the operative extremity was properly identified. An anterior approach was used. Dissection was taken down through the fascia and the tensor muscle belly was retracted laterally and the rectus was retracted medially. The circumflex vessels were identified and ligated. The capsule was then incised and tagged for later repair. The femoral neck was then cut and the femoral head was removed. The acetabulum was exposed. Time was spent doing a complete circumferential labral release. Sequential reaming of the acetabulum up to a size 49 reamer was done. Final reamings were done under fluoroscopy to ensure appropriate version. A Biomet 50 mm G7 cup was then impacted into place. A single 25 mm screw was placed. The E1 polyethylene liner was then snapped into place. Surrounding soft tissues were then injected with 100 cc of an orthopedic pain control cocktail. The proximal femur was then exposed. Sequential broaching up to a size 6 broach was done. Off that broach a size 36 head with a -3 neck was trialed. The hip was reduced and fluoroscopic images showed anatomic alignment of the implants in acceptable length. The broach was removed. The final size 6 standard offset Taperloc stem was then impacted into place. A ceramic 36 mm head with a -3 neck was then impacted into place in the hip was reduced. Final fluoroscopic images showed anatomic reduction of the hip. The capsule was then closed with #1 Vicryl suture. A dilute betadyne lavage was then done for 3 minutes. The joint was then irrigated with normal saline solution. The fascia was closed with #1 PDS suture. Skin was closed with 2-0 Vicryl, doug, and a Laura VAC dressing. The patient was then transferred to a hospital bed and taken to the post anesthesia care unit in stable condition. They tolerated the procedure well. I attest to the content of the Intraoperative Record and any orders documented therein. Any exceptions are noted below.
--- NOTE | 2018-12-31 11:49 | Fluoroscopy Report ---
FL hip RT 1V HISTORY: 63 years-old Female RT ANTERIOR OMER right hip total joint arthroplasty. History of degenera tive joint disease COMPARISON: None available TECHNIQUE: 2 spot fluoroscopic images of the right hip were obtained utilizing 39.7 seconds fluorosco py time FINDINGS: Satisfactory alignment of the right hip total joint arthroplasty. Expected postsurgical soft tissue s welling and deep tissue air. IMPRESSION: Fluoroscopic assistance as above. Please see operative report for further details. The above report was generated using voice recognition software. It may contain grammatical, syntax o r spelling errors. Electronically signed by: Robin Ibarra M.D. 12/31/2018 11:48 AM
--- NOTE | 2018-12-31 12:12 | XRay Report ---
XR hip 1V RT w pelvis CLINICAL HISTORY: IN PACU - A/P PELVIS and LATERAL HIP COMPARISON: None. DISCUSSION: Anatomic alignment posttotal right hip arthroplasty. Could contact between prosthetic and underlying bone. Expected postoperative soft tissue change. IMPRESSION: Anatomic alignment posttotal right hip arthroplasty. The above report was generated using voice recognition software. It may contain grammatical, syntax or spelling errors. Electronically signed by: Alo Murphy M.D. 12/31/2018 12:11 PM
--- NOTE | 2018-12-31 12:14 | Anesthesiology Progress Note ---
Date of Service December 31, 2018 Anesthesia Post Procedure Vital Signs Vital Signs: Temp Pulse Pulse Resp BP BP Pulse Ox 12/31/18 12:05 86 15 131/91 97 12/31/18 11:55 84 15 137/80 98 12/31/18 11:48 36.8 C 84 19 143/81 H 100 12/31/18 08:36 36.6 C 79 18 153/73 H 98 Pain Intensity Right Hip: Pain Intensity: 7 Transfer of Care Handoff Completed per policy Notes Mental Status: alert / awake / arousable and participated in evaluation Patient Amnestic to Procedure: Yes Nausea / Vomiting: adequately controlled Pain: adequately controlled Airway Patency, RR, SpO2: stable & adequate BP & HR: stable & adequate Hydration State: stable & adequate Anesthetic Complications: no major complications apparent and Pt Satisfied with anesthetic care
[2018-12-31] MEDS ORDERED: bisacodyL 10 MG SUPP PR PRN (13:01)
[2018-12-31] MEDS ORDERED: SODIUM CHLORIDE 0.9% 1000ML 1,000 ML IV SCH (13:01)
[2018-12-31] MEDS ORDERED: NALOXONE HCL 0.4 MG/1 ML VIAL/CARP IV PRN (13:01)
[2018-12-31] MEDS ORDERED: METOCLOPRAMIDE HCL INJ 5 MG/ML 2 ML VIAL IV PRN (13:01)
[2018-12-31] MEDS ORDERED: HYDROmorphone INJ 0.5 MG/0.5 ML SYR IV PRN (13:01)
[2018-12-31] MEDS ORDERED: MAGNESIUM HYDROXIDE SUSP 30 ML UDC PO PRN (13:01)
[2018-12-31] MEDS ORDERED: OXYCODONE HCL IR 5 MG TAB (IMMEDIATE RELEASE) PO PRN (13:01)
[2018-12-31] MEDS: ACETAMINOPHEN 500 MG TAB PO SCH ×2 (13:36→21:05)
[2018-12-31] MEDS: KETOROLAC 30 MG/ML VIAL IV SCH ×2 (13:37→19:15)
[2018-12-31] MEDS: CEFAZOLIN 2000MG 2,000 MG/15 ML SYR IV SCH (17:12)
[2018-12-31] MEDS ORDERED: Nursing to Pharmacy Communication ONE (18:39)
[2018-12-31] MEDS ORDERED: ATORVASTATIN 40 MG TAB PO SCH (21:00)
[2018-12-31] MEDS ORDERED: SENNA 8.6 MG TAB PO SCH (21:00)
[2018-12-31] MEDS ORDERED: ROPINIROLE HCL 1 MG TABLET PO SCH (21:00)
[2018-12-31] MEDS: ASPIRIN 81 MG ECTAB PO SCH (21:05)
[2018-12-31] MEDS: DOCUSATE SODIUM 100 MG CAP PO SCH (21:05)
[2019-01-01] MEDS: CEFAZOLIN 2000MG 2,000 MG/15 ML SYR IV SCH (02:57)
[2019-01-01] MEDS: KETOROLAC 30 MG/ML VIAL IV SCH ×2 (02:57→08:10)
[2019-01-01 05:48] LABS: Basophils # (auto) 0.01 K/uL (0-0.2); Basophils % (auto) 0.1 %; Eosinophils # (auto) 0.01 K/uL (0-0.5); Eosinophils % (auto) 0.1 %; Hematocrit (blood only) 33.8 % (37-47); Hemoglobin 11.3 g/dL (12.0-16.0); Immature Granulocytes # (auto) 0.02 K/uL (0.00-0.02); Immature Granulocytes % (auto) 0.2 %; Lymphocytes # (auto) 1.28 K/uL (1.2-3.4); Lymphocytes % (auto) 12.4 %; Mean Corpuscular Hemoglobin 31.6 pg (25-34); Mean Corpuscular Hgb Conc 33.4 g/dL (32-36); Mean Corpuscular Volume 94.4 fL (80-100); Mean Platelet Volume 10.1 fL (7.4-10.4); Monocytes # (auto) 0.92 K/uL (0.11-0.59); Monocytes % (auto) 8.9 %; Neutrophils % (auto) 78.3 %; Platelet Count 186 K/uL (130-400); RDW Standard Deviation 45.3 fL (36.4-46.3); Red Blood Count 3.58 M/uL (4.2-5.4); White Blood Count 10.34 K/uL (4.8-10.8)
[2019-01-01] MEDS: ACETAMINOPHEN 500 MG TAB PO SCH (05:49)
[2019-01-01 06:21] LABS: BUN Creatinine Ratio 18.2 (10-20); Calcium 8.2 mg/dl (8.5-10.1); Creatinine Clr Calc Pharmacy 72.5 ml/min; Est GFR (African American) 85.1; Est GFR (Non-African American) 73.4; Potassium 3.6 mmol/L (3.5-5.1)
[2019-01-01] MEDS ORDERED: LEVOTHYROXINE SODIUM 125 MCG TABLET PO SCH (06:30)
[2019-01-01] MEDS: DOCUSATE SODIUM 100 MG CAP PO SCH (08:11)
[2019-01-01] MEDS: ASPIRIN 81 MG ECTAB PO SCH (08:11)
--- NOTE | 2019-01-01 08:45 | Orthopedic Progress Note ---
Date of Service January 01, 2019 Assessment & Plan (1) Osteoarthritis of right hip: Overall she is doing very well. She is not having much pain in the hip. She will be seen by physical therapy this morning for ambulation and range of motion exercises. She is on aspirin for DVT prophylaxis. She can be discharged home later today on oral tramadol. She will get home physical therapy. She will follow-up with orthopedics in 2 weeks. Present on Admission?: Yes Gregory Butcher was seen and examined at bedside this morning. Overall she is doing very well. She is not having too much pain in the right hip. She has been up and ambulating to the bathroom. She is waiting for physical therapy today. She has no complaints. Physical Exam Musculoskeletal: On physical examination of the right hip, the Laura VAC dressings to suction. Her leg lengths are equal. She is active dorsiflexion and plantarflexion of the right ankle. Sensations intact throughout. Results & Data Vital Signs (Past 12 Hours) Vital Signs Temp Pulse Resp BP Pulse Ox 01/01/19 06:54 36.4 C L 65 18 112/71 95 01/01/19 03:01 36.5 C 70 16 115/66 95 12/31/18 23:45 36.6 C 72 15 100/59 L 95 Laboratory Results H & H 12/06/18 01/01/19 Range/Units 11:36 04:35 Hgb 14.5 11.3 L (12.0-16.0) g/dL Hct 42.6 33.8 L (37-47) % Coagulation 12/06/18 Range/Units 11:36 INR 1.0 (0.9-1.1) Diagnostic Findings Postoperative x-rays of the right hip show the prosthesis to be in anatomic alignment without any evidence of fracture, dislocation, or loosening. PG Care Time/CCT Total # of Minutes Spent Total Time Spent with Patient: Total time spent is greater than 50% in coordination of care (as documented) at patient's floor/unit and/or counseling patient:
--- NOTE | 2019-01-01 08:47 | Discharge Summary ---
Date of Service January 01, 2019 Admission HPI Per Admitting Provider Guadalupe is a pleasant 63-year-old female who is been dealing with chronic increasing right hip and groin pain. X-rays and clinical examination have been diagnostic for primary osteoarthritis of the right hip. After failing conservative treatment, she has elected to proceed with a right anterior total hip arthroplasty. Principal Diagnosis Right total hip arthroplasty Discharge Data Allergies Allergy/AdvReac Type Severity Reaction Status Date / Time codeine AdvReac Unknown NAUSEA/DIZZ Verified 12/31/18 08:21 INESS Consultations 01/01/19 08:00 Consult Case Management - Discharge Planning Routine Procedures Performed Operation Date: 12/31/18 10:25 Actual Procedures p Right Anterior Total Hip Arthroplasty(Right) - Jeremías Kang DO Ordered Studies 12/31/18 10:25 FL fluoroscopy <1hr Routine FL hip RT 1V Routine Hospital Course (1) Osteoarthritis of right hip: On December 31, 2018 Guadalupe arrived at [facility] and underwent a right total hip arthroplasty without complication. She had a spinal anesthetic. Postoperatively she was started on aspirin for DVT prophylaxis and discharged to general orthopedic floors. Her hospital course is uneventful. On postop day #1 her H&H was stable and her pain was well controlled. She was seen by physical therapy and able to do ambulation and range of motion exercises. She was then discharged home with home physical therapy. She will follow-up with orthopedics in 2 weeks. Total Time Total Time Spent Total Time Spent (In Minutes): 20 Discharge Plan Discharge Items Patient Disposition: Home - Home Health Services Reason For Visit: RIGHT HIP DEGENERATIVE JOINT DISEASE Discharge Diagnosis: Right total hip arthroplasty Activity: As commented below Non-emergency contact: Surgeon Call non-emergency contact if: your wound has increased redness and your wound has increased drainage Follow-up/Referrals: Quyen Phillips DO [Primary Care Provider] - Diet: Regular Addtl Attending Provider Instructions: Activity and Therapy Recommendations: * If you are using [facility] then therapy will be provided at your home until they feel you have accomplished all of your goals. * If you are using [facility] then Physical Therapy will be provided until they feel you are ready to start Outpatient Physical Therapy. * If you are not using home therapy then Outpatient Physical Therapy should start about 3-5 days from your day of surgery. Therapy will last about 6-10 weeks * You were shown a series of exercises in the hospital. Do these exercises three times each day including the exercises you were shown in physical therapy. * Get up and walk several times each day.~ For the first four weeks, try not to stand or walk for more than one hour at a time. If you do stand or walk for more than one hour, you will not hurt anything, but your leg will likely swell.~~ * As you feel comfortable, you may change from the walker or crutches to a cane and~then to independent walking. Medications: * Narcotic You will likely be sent home from the hospital with a prescription for the narcotic pain medication that worked best throughout your stay. * Aspirin Most patients will be required to take Aspirin 81mg twice a day for 6 weeks after surgery. This is obtained [id number] and a prescription is not necessary. * Other medications may be prescribed for specific circumstances. If you have any questions, please call the office at . * Resume previous home medications unless otherwise instructed TEDs/Elastic Stockings: The white elastic stockings help limit swelling and prevent blood clots from forming in your legs. The more you wear them, the more they work. Wear them for six weeks. Dressing Care: You will likely have a purple VAC dressing after surgery. This dressing will keep the incision dry and promote early healing. After about 7 days the batteries will wear out and the VAC will lose suction. Simply remove the dressing at that time and throw everything away, including the small suction machine. Then, you may leave the doug open to air or cover them with a dry dressing so they do not rub on your pants. The doug will be removed at your 2 week follow-up appointment. Showering: You may shower immediately with the purple VAC dressing. Let the shower spray hit your opposite side and slowly pat the plastic dry. Do not soak the dressing. After the dressing is removed you may shower normally with the doug exposed. Let soapy water run over the doug and pat them dry. Things To Watch For: * Drainage from the incision site that occurs more than one week after your surgery. * Increased redness at the incision site. * Fever above 102 degrees Fahrenheit. * Unusual chest pain or shortness of breath. * Call [facility] at with any of the above problems Follow-Up Visit: Follow-up with Dr. Kang 2-3 weeks after your day of surgery. An appointment was probably scheduled when you signed-up for surgery in the office. If you have any questions call Office Instructions: More detailed instructions as well as Frequently Asked Questions were provided in a folder by our office when you signed-up for surgery. Please review these instructions when you get home. If you have any further questions or concerns, please feel free to call the office at [phone] Pending Studies at Discharge: No Stand-Alone Forms: [facility] Medications and DC Order Prescriptions: New tramadol 50 mg tablet 50 mg PO Q6H PRN (Reason: pain) Qty: 30 RF: 0 Continued atorvastatin [Lipitor] 40 mg tablet 40 mg PO HS RF: 0 metoprolol succinate [Toprol XL] 50 mg tablet extended release 24 hr 75 mg PO QAM RF: 0 meloxicam 7.5 mg tablet 7.5 mg PO QAM RF: 0 losartan 100 mg tablet 100 mg PO QAM RF: 0 omeprazole magnesium [Prilosec OTC] 20 mg tablet,delayed release (DR/EC) 20 mg PO QAM RF: 0 cholecalciferol (vitamin D3) 2,000 unit capsule 2,000 units PO DAILY RF: 0 levothyroxine 125 mcg capsule 125 mcg PO QAM RF: 0 calcium carbonate-vitamin D3 [Caltrate with Vitamin D3] 600 mg(1,500mg) -800 unit tablet 1 tab PO BID RF: 0 omega-3 fatty acids [Fish Oil Concentrate] 1,000 mg capsule 1,000 mg PO BID RF: 0 Flovent Diskus 100 mcg/actuation blister with device 1 inha INH UD PRN (Reason: ASTHMA) RF: 0 multivitamin [Multiple Vitamins] Tablet 1 tab PO DAILY RF: 0 hydrochlorothiazide 25 mg Tablet 25 mg PO QAM RF: 0 cyanocobalamin (vitamin B-12) [Vitamin B-12] 1,000 mcg Tablet 1,000 mcg PO QAM RF: 0 magnesium 250 mg Tablet 500 mg PO QAM RF: 0 lorazepam [Ativan] 0.5 mg Tablet 0.5 mg PO UD PRN (Reason: Anxiety) RF: 0 ropinirole 4 mg Tablet 4 mg PO HS RF: 0 PreserVision AREDS-2 capsule PO BID RF: 0 Changed aspirin [Adult Aspirin Regimen] 81 mg tablet,delayed release (DR/EC) 81 mg PO BID Qty: 0 RF: 0 Discharge Orders: Discharge Order (Routine); Ordered 01/01/19 Ordered By: Jeremías Kang Admission Data Admit Date/Time: 12/31/18 11:52 Attending Provider: Jeremías Kang Admit Provider: Jeremías Kang Primary Care Provider: Quyen Phillips
[2019-01-01] MEDS ORDERED: LOSARTAN POTASSIUM 50 MG TAB PO SCH (09:00)
[2019-01-01] MEDS ORDERED: hydroCHLOROthiazide 25 MG TAB PO SCH (09:00)
[2019-01-01] MEDS ORDERED: PANTOprazole 40 MG TAB PO SCH (09:00)
[2019-01-01] MEDS ORDERED: METOPROLOL SUCC 25MG EXT REL TAB PO SCH (09:00)
[2019-01-01] MEDS ORDERED: MULTIVITAMIN TAB PO SCH ×2 (09:00)
[2019-01-01] MEDS ORDERED: MAGNESIUM OXIDE 400 MG TAB PO SCH (09:00)
[2019-01-01] MEDS ORDERED: ROPINIROLE HCL 1 MG TABLET PO SCH (18:00)
== END 2019-01-01 13:12 | disposition home or self-care (01) | DRG 470 ==
LOC: ASU 07:50 → 3E 11:52

== ENCOUNTER 2024-06-17 09:01 | Observation (INO) ==
--- NOTE | 2024-05-17 11:22 | PAT Medication Instructions ---
Medication Instructions Date of Service May 17, 2024 Home Medications calcium 600 mg (as carbonate)-vitamin D3 20 mcg (800 unit) tablet (Caltrate with Vitamin D3) 1 tab PO BID cholecalciferol (vitamin D3) 50 mcg (2,000 unit) capsule 2,000 units PO QAM losartan 100 mg tablet 100 mg PO QPM omeprazole magnesium 20 mg tablet,delayed release (Prilosec OTC) 20 mg PO QAM multivitamin (Multiple Vitamins tablet) 1 tab PO QAM fluticasone propionate 100 mcg/actuation blister powder for inhalation (Flovent Diskus) 1 inha inhalation UD PRN lorazepam 0.5 mg tablet (Ativan) 0.5 mg PO UD PRN magnesium 250 mg tablet 250 - 500 mg PO UD ropinirole 4 mg tablet 4 mg PO QPM lactobacillus combination no.4 3 billion cell capsule (Probiotic) 3,000 mmu cells PO DAILY levothyroxine 100 mcg capsule 100 mcg PO UD levothyroxine 112 mcg capsule 112 mcg PO UD metformin 500 mg tablet 500 mg PO QPM rosuvastatin 10 mg tablet (Crestor) 10 mg PO QPM semaglutide 2 mg/dose (8 mg/3 mL) subcutaneous pen injector (Ozempic) 2 mg subcut Q7D amoxicillin 500 mg tablet 2,000 mg PO UD PRN aspirin 81 mg tablet,delayed release (Adult Aspirin Regimen) 81 mg PO QAM cranberry 500 mg capsule 500 mg PO QAM cyclosporine 0.05 % eye drops in a dropperette (Restasis) 1 drp ophthalmic (eye) Q12H estradiol 0.01% (0.1 mg/gram) vaginal cream 1 applic vaginal UD hydrochlorothiazide 12.5 mg tablet 12.5 mg PO QAM meloxicam 15 mg tablet 15 mg PO QAM metoprolol succinate 100 mg tablet,extended release 24 hr 100 mg PO QAM omega-3 fatty acids 1,200 mg PO BID vit C 250 mg-vit E 90 mg-zinc 40 mg-copper 1 [id number] capsule (PreserVision AREDS-2) 1 tab PO BID STOP 7 days before surgery semaglutide 2 mg/dose (8 mg/3 mL) subcutaneous pen injector (Ozempic) 2 mg subcut Q7D Continue as directed fluticasone propionate 100 mcg/actuation blister powder for inhalation (Flovent Diskus) 1 inha inhalation UD PRN(if needed) lorazepam 0.5 mg tablet (Ativan) 0.5 mg PO UD PRN(if needed) levothyroxine 100 mcg capsule 100 mcg PO UD levothyroxine 112 mcg capsule 112 mcg PO UD amoxicillin 500 mg tablet 2,000 mg PO UD PRN(if needed) ASK your surgeon for instructions meloxicam 15 mg tablet 15 mg PO QAM ASK your prescriber and surgeon aspirin 81 mg tablet,delayed release (Adult Aspirin Regimen) 81 mg PO QAM STOP taking 2 weeks before surgery (or as soon as possible if surgery is within 2 weeks) omega-3 fatty acids 1,200 mg PO BID vit C 250 mg-vit E 90 mg-zinc 40 mg-copper 1 [id number] capsule (PreserVision AREDS-2) 1 tab PO BID STOP taking 24 hours before surgery estradiol 0.01% (0.1 mg/gram) vaginal cream 1 applic vaginal UD DO NOT take the morning of surgery calcium 600 mg (as carbonate)-vitamin D3 20 mcg (800 unit) tablet (Caltrate with Vitamin D3) 1 tab PO BID cholecalciferol (vitamin D3) 50 mcg (2,000 unit) capsule 2,000 units PO QAM multivitamin (Multiple Vitamins tablet) 1 tab PO QAM magnesium 250 mg tablet 250 - 500 mg PO UD lactobacillus combination no.4 3 billion cell capsule (Probiotic) 3,000 mmu cells PO DAILY cranberry 500 mg capsule 500 mg PO QAM hydrochlorothiazide 12.5 mg tablet 12.5 mg PO QAM Take morning of surgery With a small sip of water, OTHERWISE NOTHING TO EAT OR DRINK AFTER MIDNIGHT: omeprazole magnesium 20 mg tablet,delayed release (Prilosec OTC) 20 mg PO QAM cyclosporine 0.05 % eye drops in a dropperette (Restasis) 1 drp ophthalmic (eye) Q12H metoprolol succinate 100 mg tablet,extended release 24 hr 100 mg PO QAM Take evening before surgery calcium 600 mg (as carbonate)-vitamin D3 20 mcg (800 unit) tablet (Caltrate with Vitamin D3) 1 tab PO BID losartan 100 mg tablet 100 mg PO QPM ropinirole 4 mg tablet 4 mg PO QPM metformin 500 mg tablet 500 mg PO QPM rosuvastatin 10 mg tablet (Crestor) 10 mg PO QPM cyclosporine 0.05 % eye drops in a dropperette (Restasis) 1 drp ophthalmic (eye) Q12H Other Notes If you have any questions please call us at [phone] or [phone] or [phone] or [phone]
--- NOTE | 2024-05-26 08:36 | Anesthesiology Consultation ---
Date of Service May 26, 2024 Assessment & Plan (1) Encounter for pre-operative examination: Plan - check BSG am DOS. - difficult intubation: Right TSA: 03/26/18: easy mask vent, DVL with MAC 3 could not see beyond epiglottis, changed to Rdz 2 and view unchanged- no improvement with CCP, uneventful Glidescope #3, ETT 7.0 at [facility]. - semaglutide instructions: Patient informed at PAT visit to stop 7 days prior to surgery- voiced understanding. Patient advised to check with prescriber to see if alternative diabetic management changes recommended while holding semaglutide- if so, patient to call back to [facility] to update chart and discuss if any further preop medication instructions needed. - Outpatient joint assessment: Patient is currently scheduled for inpatient pathway. If re-evaluated and patient/surgeon requests outpatient pathway, patient is acceptable candidate for outpatient joint program from anesthesia standpoint pending surgeon's office assessment of pt motivation/support/completion of same day joint program preop requirements. Chart Review Chart Review: Acceptable Risk for Surgery and Patient seen in Pre Admission Testing Teaching & Discussion Pre-Anesthesia Teaching/Discussion Notes: Instructed NPO after midnight before surgery, except medications with 15 cc of water. Medication instructions provided according to the PAT guidelines. History Surgery Operation Date: 07/08/24 11:00 Proposed Procedures p Left Total Hip Arthroplasty Anterior - Jeremías Kang DO Height/Weight Height: 5 ft 5.5 in Weight: 69 kg Allergies Allergy/AdvReac Type Severity Reaction Status Date / Time codeine AdvReac Unknown nausea/dizz Verified 05/26/24 08:42 iness Medications Home Medications Medication Instructions Recorded Confirmed Last Taken calcium 600 mg (as 1 tab PO BID 12/31/17 05/16/24 12/30/18 18:00 carbonate)-vitamin D3 20 mcg (800 unit) tablet (Caltrate with Vitamin D3) cholecalciferol (vitamin D3) 50 2,000 units PO QAM 12/31/17 05/16/24 12/30/18 06:00 mcg (2,000 unit) capsule losartan 100 mg tablet 100 mg PO QPM 12/31/17 05/16/24 12/30/18 06:00 omeprazole magnesium 20 mg 20 mg PO QAM 12/31/17 05/16/24 12/31/18 06:00 tablet,delayed release (Prilosec OTC) multivitamin (Multiple Vitamins 1 tab PO QAM 02/26/18 05/16/24 12/30/18 06:00 tablet) fluticasone propionate 100 1 inha inhalation UD PRN ASTHMA 06/25/18 05/16/24 12/23/18 mcg/actuation blister powder for inhalation (Flovent Diskus) lorazepam 0.5 mg tablet (Ativan) 0.5 mg PO UD PRN Anxiety 11/29/18 05/16/24 12/31/18 06:00 magnesium 250 mg tablet 250 - 500 mg PO UD 11/29/18 05/16/24 12/30/18 06:00 ropinirole 4 mg tablet 4 mg PO QPM 11/29/18 05/16/24 12/29/18 18:00 lactobacillus combination no.4 3 3,000 mmu cells PO DAILY 05/12/24 05/16/24 Unknown billion cell capsule (Probiotic) levothyroxine 100 mcg capsule 100 mcg PO UD 05/12/24 05/16/24 Unknown levothyroxine 112 mcg capsule 112 mcg PO UD 05/12/24 05/16/24 Unknown metformin 500 mg tablet 500 mg PO QPM 05/12/24 05/16/24 Unknown rosuvastatin 10 mg tablet (Crestor) 10 mg PO QPM 05/12/24 05/16/24 Unknown semaglutide 2 mg/dose (8 mg/3 mL) 2 mg subcut Q7D 05/12/24 05/16/24 Unknown subcutaneous pen injector (Ozempic) amoxicillin 500 mg tablet 2,000 mg PO UD PRN dental procedure 05/16/24 05/16/24 Unknown aspirin 81 mg tablet,delayed 81 mg PO QAM 05/16/24 05/16/24 Unknown release (Adult Aspirin Regimen) cranberry 500 mg capsule 500 mg PO QAM 05/16/24 05/16/24 Unknown cyclosporine 0.05 % eye drops in a 1 drp ophthalmic (eye) Q12H 05/16/24 05/16/24 Unknown dropperette (Restasis) estradiol 0.01% (0.1 mg/gram) 1 applic vaginal UD 05/16/24 05/16/24 Unknown vaginal cream hydrochlorothiazide 12.5 mg tablet 12.5 mg PO QAM 05/16/24 05/16/24 Unknown meloxicam 15 mg tablet 15 mg PO QAM 05/16/24 05/16/24 Unknown metoprolol succinate 100 mg 100 mg PO QAM 05/16/24 05/16/24 Unknown tablet,extended release 24 hr omega-3 fatty acids 1,200 mg PO BID 05/16/24 05/16/24 Unknown vit C 250 mg-vit E 90 mg-zinc 40 1 tab PO BID 05/16/24 05/16/24 Unknown mg-copper 1 [id number]-hikxjv capsule (PreserVision AREDS-2) Past Medical History Medical History (Updated 05/26/24 @ 10:12 by Ana Sosa PA-C) Anxiety hx Asthma inhaler PRN exercise, stable Diabetes NIDDM GERD (gastroesophageal reflux disease) controlled, stable per pt High cholesterol History of difficult intubation Right TSA: 03/26/18: easy mask vent, DVL with MAC 3 could not see beyond epiglottis, changed to Rdz 2 and view unchanged- no improvement with CCP, uneventful Glidescope #3, ETT 7.0 at [facility] History of prolonged Q-T interval on ECG currently on Toprol XL; f/u with PCP Hypertension + "white coat syndrome" Hypothyroidism Lumbar radicular pain Nausea after anesthesia pt unsure if has had scop patch in the past Osteoarthritis Restless leg syndrome Spinal stenosis "mild" Patient denies h/o stroke, seizures, heart attack, heart failure, blood clots/DVTs or blood transfusions. Exercise / Class Metabolic Activity II 4-5 Yardwork/Stairs/Walk up hill (denies chest discomfort or shortness of breath with one flight of stairs) Past Family History Family History Brother Family history of Hodgkin's lymphoma Family history of diabetes mellitus (DM) Mother Family history of diabetes mellitus (DM) Son Family history of diabetes mellitus (DM) Past Surgical History Surgical History (Updated 05/26/24 @ 10:12 by Ana Sosa PA-C) History of Achilles tendon repair (2009) left, & nerve decompression History of arthroscopy of right knee History of bone graft (2010) left tib/fib History of cataract surgery (2018) rt/lt History of colonoscopy next one scheduled 05/30/24 History of hammertoe correction right History of surgery on extremity left tib/fib History of surgery on extremity left leg lengthened-hardware removal-revision History of thumb surgery History of total replacement of right shoulder joint 03/2018 History of total right hip arthroplasty 12/2018 Past Anesthesia History Difficult Airway and No Family Hx of Anesthesia Complications History of PONV History of PONV and Hx of Motion Sickness Social History Smoking Status: Never smoker Do You Dip or Chew Tobacco: No Hx Alcohol Use: Yes Alcohol type: wine alcohol intake frequency: other Alcohol Intake Frequency Comment: very rare Hx Substance Use: No substance use type: does not use Review of Systems Patient denies chest pain, shortness of breath, dyspnea on exertion, snoring, witnessed apneas, fever, chills, cough, wheezing, or palpitations. Physical Exam Vital Signs Vitals BP 165/92 P 74 TEMP 97.7 SP02 100% on RA RESP 19 Physical Patient resting comfortably in chair in no acute distress, alert and oriented, responding appropriately throughout visit Full cervical extension range of motion without pain TMD 3.5 finger breadths Mallampati Score 2 Dentition: bridge upper right and implant front upper right side, several crowns, denies chipped or loose teeth Lungs: normal respiratory effort. Good air movement, clear throughout to auscultation, no adventitious breath sounds Cardiac: regular rate and rhythm, no murmurs noted Carotid arteries: negative bruit bilat Lab Results Anesthesia Preop Results Results Anesthesia Widget: WBC 5.88 K/ul (4.8-10.8) 05/26/24 Hgb 14.1 g/dl (12.0-16.0) 05/26/24 Hct 42.0 % (37.0-47.0) 05/26/24 Plt 207 K/uL (130-400) 05/26/24 Na 137 mmol/L (136-145) 05/26/24 K 3.2 mmol/L (3.5-5.1) L 05/26/24 Cl 101 mmol/L (98-107) 05/26/24 CO2 27 mmol/L (21-32) 05/26/24 BUN 14 mg/dl (6-23) 05/26/24 Creat 0.64 mg/dl (0.6-1.2) 05/26/24 Glucose Level 108 mg/dl (70-99(Fasting)) H 05/26/24 PT 10.4 Seconds (9.0-12.0) 05/26/24 PTT 29 Seconds (21-31) 05/26/24 INR 1.0 (0.9-1.1) 05/26/24 Blood Type O Positive 05/26/24 Antibody Screen NEGATIVE 05/26/24 Testing Laboratory Results 05/24/24 A1c: 5.4% Electrocardiogram Date: 05/26/24 NSR, rate 70 bpm Chest X-Ray Date: 05/26/24 1. No focal consolidation, infiltrates, or granuloma noted. 2. Right shoulder replacement is noted.
--- NOTE | 2024-06-16 10:29 | History & Physical Report ---
Date of Service June 16, 2024 Assessment & Plan (1) Osteoarthritis of left hip: We will proceed with a left anterior total of arthroplasty. Postoperatively she will be started on aspirin for DVT prophylaxis and kept overnight in the hospital for postop medical management. She plans to use energy physical the rapy upon discharge. History of Present Illness Chief Complaint: Osteoarthritis of the left hip. Primary Care Provider: Quyen Phillips DO Guadalupe is a pleasant 69-year-old female spending with chronic increasing left hip and groin pain. I did a right hip replacement on her in 2019 and she has done well with that. She is now having left hip pain. X-rays and clinical exam have been diagnostic for advanced arthritis of the left hip. After failed conservative treatment, she has elected proceed with a left anterior total of arthroplasty.. Allergies Allergy/AdvReac Type Severity Reaction Status Date / Time codeine AdvReac Unknown nausea/dizz Verified 05/26/24 08:42 iness Home Medications Medication Instructions Recorded Confirmed Type calcium 600 mg (as 1 tab PO BID 12/31/17 05/16/24 History carbonate)-vitamin D3 20 mcg (800 unit) tablet (Caltrate with Vitamin D3) cholecalciferol (vitamin D3) 50 2,000 units PO QAM 12/31/17 05/16/24 History mcg (2,000 unit) capsule losartan 100 mg tablet 100 mg PO QPM 12/31/17 05/16/24 History omeprazole magnesium 20 mg 20 mg PO QAM 12/31/17 05/16/24 History tablet,delayed release (Prilosec OTC) multivitamin (Multiple Vitamins 1 tab PO QAM 02/26/18 05/16/24 History tablet) fluticasone propionate 100 1 inha inhalation UD PRN ASTHMA 06/25/18 05/16/24 History mcg/actuation blister powder for inhalation (Flovent Diskus) lorazepam 0.5 mg tablet (Ativan) 0.5 mg PO UD PRN Anxiety 11/29/18 05/16/24 History magnesium 250 mg tablet 250 - 500 mg PO UD 11/29/18 05/16/24 History ropinirole 4 mg tablet 4 mg PO QPM 11/29/18 05/16/24 History lactobacillus combination no.4 3 3,000 mmu cells PO DAILY 05/12/24 05/16/24 History billion cell capsule (Probiotic) levothyroxine 100 mcg capsule 100 mcg PO UD 05/12/24 05/16/24 History levothyroxine 112 mcg capsule 112 mcg PO UD 05/12/24 05/16/24 History metformin 500 mg tablet 500 mg PO QPM 05/12/24 05/16/24 History rosuvastatin 10 mg tablet (Crestor) 10 mg PO QPM 05/12/24 05/16/24 History semaglutide 2 mg/dose (8 mg/3 mL) 2 mg subcut Q7D 05/12/24 05/16/24 History subcutaneous pen injector (Ozempic) amoxicillin 500 mg tablet 2,000 mg PO UD PRN dental procedure 05/16/24 05/16/24 History aspirin 81 mg tablet,delayed 81 mg PO QAM 05/16/24 05/16/24 History release (Adult Aspirin Regimen) cranberry 500 mg capsule 500 mg PO QAM 05/16/24 05/16/24 History cyclosporine 0.05 % eye drops in a 1 drp ophthalmic (eye) Q12H 05/16/24 05/16/24 History dropperette (Restasis) estradiol 0.01% (0.1 mg/gram) 1 applic vaginal UD 05/16/24 05/16/24 History vaginal cream hydrochlorothiazide 12.5 mg tablet 12.5 mg PO QAM 05/16/24 05/16/24 History meloxicam 15 mg tablet 15 mg PO QAM 05/16/24 05/16/24 History metoprolol succinate 100 mg 100 mg PO QAM 05/16/24 05/16/24 History tablet,extended release 24 hr omega-3 fatty acids 1,200 mg PO BID 05/16/24 05/16/24 History vit C 250 mg-vit E 90 mg-zinc 40 1 tab PO BID 05/16/24 05/16/24 History mg-copper 1 [id number] capsule (PreserVision AREDS-2) Past Med/Surg History Problem List Chronic low back pain Tendinitis of right rotator cuff Lumbar radicular pain Osteoarthritis of left hip Arthritis BACK Sacroiliitis Medical History Diabetes NIDDM Nausea after anesthesia pt unsure if has had scop patch in the past Lumbar radicular pain History of difficult intubation Right TSA: 03/26/18: easy mask vent, DVL with MAC 3 could not see beyond epiglottis, changed to Rdz 2 and view unchanged- no improvement with CCP, uneventful Glidescope #3, ETT 7.0 at [facility] Anxiety hx Osteoarthritis History of prolonged Q-T interval on ECG currently on Toprol XL; f/u with PCP Spinal stenosis "mild" Hypothyroidism Asthma inhaler PRN exercise, stable Hypertension + "white coat syndrome" High cholesterol Restless leg syndrome GERD (gastroesophageal reflux disease) controlled, stable per pt Surgical History History of total right hip arthroplasty 12/2018 History of total replacement of right shoulder joint 03/2018 History of colonoscopy next one scheduled 05/30/24 History of cataract surgery (2018) rt/lt History of surgery on extremity left leg lengthened-hardware removal-revision History of surgery on extremity left tib/fib History of hammertoe correction right History of thumb surgery History of bone graft (2009) left tib/fib History of Achilles tendon repair (2009) left, & nerve decompression History of arthroscopy of right knee Family History Brother Family history of Hodgkin's lymphoma Family history of diabetes mellitus (DM) Mother Family history of diabetes mellitus (DM) Son Family history of diabetes mellitus (DM) Social History Smoking Status: Never smoker Second Hand Exposure: Yes (hx growing up); Do You Dip or Chew Tobacco: No; Tobacco Cessation Education Requested by Patient: No Hx Alcohol Use: Yes Alcohol type: wine Hx Substance Use: No Preferred Language: Swazi Communication Ability: Effective Visual Impairment: No Limitations Hearing Ability: Normal Epic Ambulatory Analyst Required: No Beliefs That Will Affect Care: None marital status: Current Living Situation: Spouse and Family Current Living Situation Comment: DAUGHTER (WITH DOWN SYNDROME) current occupational status: retired Other Information That Helps Us Care for You: No Feels Safe at Home: Yes Safety Concerns: Feels Safe At This Time Assistive Devices: Glasses Review of Systems All systems reviewed & are unremarkable except as noted in HPI & below. Physical Exam Physical exam the left hip, she has decreased range of motion. She has pain with internal/external rotation. All of her pains located in the groin.. Constitutional WD/WN, vitals as above Eyes PERRL, conjunctivae normal, anicteric sclerae ENMT external ear and nose normal, oropharynx normal Neck trachea midline, no thyromegaly Respiratory normal respiratory effort Cardiovascular RRR, no murmur, no edema Gastrointestinal (Abdomen) normal bowel sounds, soft, nontender, no hepatosplenomegaly Psychiatric A+Ox3, euthymic affect Results & Data Results & Data Laboratory Results . Diagnostic Findings X-rays of the left hip show advanced osteoarthritis with joint space narrowing, osteophyte formation, and [id number] tubulation. PG Care Time/CCT Total # of Minutes Spent Total Time Spent with Patient: Total time spent is greater than 50% in coordination of care (as documented) at patient's floor/unit and/or counseling patient: Coding Level of Care Code None Diagnoses Primary osteoarthritis of left hip M16.12 Osteoarthritis type: primary (1) Osteoarthritis of left hip Osteoarthritis type: primary Qualified Code(s): M16.12 - Unilateral primary osteoarthritis, left hip
[~2024-06-17 09:01] MED LIST changes: -ACETAMINOPHEN 500 MG TAB PO SCH; -BUPIVACAINE 0.5 % 5 MG/1 ML PF 10ML VIAL ONE; -CEFAZOLIN 2000MG 2,000 MG/15 ML SYR IV SCH; -FAMOTIDINE 20 MG TAB PO SCH; -GABAPENTIN 600 MG DOSE PO SCH; -LR 500ML BOLUS, THEN 15ML/HR IV SCH; -LR 60ML/HR IV SCH; +ROPIVACAINE 0.5% 5 MG/ML 30 ML VIAL ONE; -ROPIVACAINE 0.5% HCL/PF 150 MG, BUPIVACAINE 0.5% MPF 30 ML, EPINEPHrine 30MG/30ML (OR U... INSTIL SCH; -TRANEXAMIC ACID 1,000 MG **IV Intra-op IV SCH; -TRANEXAMIC ACID 1,000 MG **IV Pre-op IV SCH
[2024-06-17] MEDS ORDERED: MIDAZOLAM HCL 1 MG/ML 2ML VIAL ONE (09:32)
[2024-06-17] MEDS ORDERED: ONDANSETRON INJ 2 MG/ML 2 ML VIAL ONE (09:33)
[2024-06-17] MEDS ORDERED: PROPOFOL IV EMULSION 10 MG/ML 20 ML VIAL IV ONE (09:35)
[2024-06-17] MEDS: LR 60ML/HR IV SCH (09:46)
[2024-06-17] MEDS: LR 500ML BOLUS, THEN 15ML/HR IV SCH (09:56)
[2024-06-17] MEDS: dexAMETHasone**PF** 10 MG/ML VIAL IV SCH (09:57)
[2024-06-17] MEDS: GABAPENTIN 300 MG CAP PO SCH (09:57)
[2024-06-17] MEDS: ACETAMINOPHEN 500 MG TAB PO SCH ×2 (09:57→14:48)
[2024-06-17] MEDS: FAMOTIDINE 20 MG TAB PO SCH (09:57)
--- NOTE | 2024-06-17 10:14 | History & Physical Bridge Note ---
Date of Service June 17, 2024 History & Physical Bridge Note I have examined the patient, reviewed the History & Physical and in the interval since the performance of the History & Physical I have noted the following changes of clinical significance: no changes noted
[2024-06-17] MEDS ORDERED: fentaNYL citrate PF 100 MCG/2 ML VIAL IV PRN (10:26)
[2024-06-17] MEDS ORDERED: HYDROmorphone INJ 1 MG/ML SYRINGE IV PRN (10:26)
[2024-06-17] MEDS ORDERED: ONDANSETRON INJ 2 MG/ML 2 ML VIAL IV PRN (10:26)
[2024-06-17] MEDS ORDERED: ePHEDrine sulfate 50 MG/ML AMP IV PRN (10:26)
[2024-06-17] MEDS ORDERED: ATROPINE SULFATE 0.1 MG/ML 10ML SYR IV PRN (10:26)
[2024-06-17] MEDS: TRANEXAMIC ACID 1,000 MG **IV Pre-op IV SCH (10:54)
[2024-06-17] MEDS: ceFAZolin 2000MG 2,000 MG/15 ML SYR IV SCH (11:16)
[2024-06-17] MEDS ORDERED: KETAMINE HCL 10MG/ML SYR ONE (11:26)
[2024-06-17] MEDS ORDERED: PHENYLEPHRINE 100MCG/ML 5ML SYR ONE (11:43)
[2024-06-17] MEDS: ROPIV 0.5% 246mg, Ketorolac 30mg, EPINEPHrine 0.5mg in NSS INFIL SCH (12:00)
[2024-06-17] MEDS: ORTHO JOINT ANESTHETIC ONE (12:01)
[2024-06-17] MEDS: TRANEXAMIC ACID 1,000 MG **IV Intra-op IV SCH (12:23)
--- NOTE | 2024-06-17 12:28 | Operative Report ---
PG Post Operative Report Pre & Post Diagnosis Operation Date: 06/17/24 11:00 Pre-Op Diagnosis: Arthritis Hip Left Post-Op Diagnosis: Arthritis Hip Left I identified the patient and participated in the time-out.: Yes Procedure Operation Date: 06/17/24 11:00 Actual Procedures p Left Anterior Total Hip Arthroplasty(Left) - Jeremías Kang DO Surgeon Jeremías Kang DO Store Manager Robin Rahman PA-C Estimated Blood Loss 200 Findings Consistent with Post-Op Diagnosis Specimens Left femoral head Description of Procedure Implants used I used a ZimmerBiomet total hip arthroplasty system with a size 1 standard offset Avenir Complete stem, a 50 mm G7 cup with a 25mm screw, an E1 polyethylene liner, a 36 mm ceramic head with a -3.5 neck. Guadalupe arrived at the hospital for the above procedure. She was seen in the preoperative holding area and the operative extremity was identified and signed. She was given a spinal anesthetic, a preoperative antibiotic, and TXA. She was then taken back to the operating room and laid on the table in the supine position. She was given basic sedation. The operative leg was secured to a Puristst leg positioner. The hip was then prepped and draped in sterile fashion. A timeout was done and the patient and the operative extremity was properly identified. An anterior approach was used. Dissection was taken down through the fascia and the tensor muscle belly was retracted laterally and the rectus was retracted medially. The circumflex vessels were identified and ligated. The capsule was then incised and tagged for later repair. The femoral neck was then cut and the femoral head was removed. The acetabulum was exposed. Time was spent doing a complete circumferential labral release. Sequential reaming of the acetabulum up to a size 50 reamer was done. Final reamings were done under fluoroscopy to ensure appropriate version. A Biomet 50 mm G7 cup was then impacted into place. A single 25 mm screw was placed. The E1 polyethylene liner was then snapped into place. Surrounding soft tissues were then injected with 100 cc of an orthopedic pain control cocktail. The proximal femur was then exposed. Sequential broaching up to a size 1 broach was done. Off that broach a size 36 head with a -3.5 neck was trialed. The hip was reduced and fluoroscopic images showed anatomic alignment of the implants in acceptable length. The broach was removed. The final size 1 standard offset Avenir Complete stem was then impacted into place. A ceramic 36 mm head with a -3.5 neck was then impacted onto the stem and the hip was reduced. Final fluoroscopic images showed anatomic alignment of the hip. The capsule was then closed with #1 Vicryl suture. A dilute betadyne lavage was then done for 3 minutes. The joint was then irrigated with normal saline solution. The fascia was closed with #1 PDS suture. Skin was closed with 2-0 Vicryl, doug, and a Silverlon dressing. She was then transferred to a hospital bed and taken to the post anesthesia care unit in stable condition. She tolerated the procedure well. Robin Rahman PA-C, was present for the entire procedure. He was critical for patient positioning, prepping, draping, retraction exposure, wound closure and application of sterile dressing. I attest to the content of the Intraoperative Record and any orders documented therein. Any exceptions are noted below.
--- NOTE | 2024-06-17 12:51 | Fluoroscopy Report ---
FL hip LT 1V CLINICAL HISTORY: LEFT ANTERIOR HIPleft hip arthroplasty COMPARISON STUDY: Hip radiographs 04/13/2024 FLUOROSCOPY TIME: 21.0 seconds FLUOROSCOPY IMAGES: 1 EXPOSURE DOSE: 2.5018 mGy FINDINGS: Satisfactory alignment of the left hip arthroplasty. No acute fracture or unexpected opaque foreign body. IMPRESSION: Satisfactory alignment of the left hip arthroplasty. ACT 112: Negative or not required by law. Electronically signed by: Dwayne Ibarra M.D. 06/17/2024 12:50 PM
--- NOTE | 2024-06-17 13:31 | XRay Report ---
XR hip 1V LT w pelvis CLINICAL HISTORY: Postoperative evaluation. COMPARISON: Left hip radiographs April 13, 2024. FINDINGS: Alignment of the total left hip arthroplasty is anatomic. There is no periprosthetic fract ure or unexpected radiopaque foreign body. There are skin doug and acetabular screw. Right hip art hroplasty is intact. IMPRESSION: Expected findings following total left hip arthroplasty. ACT 112: Negative or not required by law. Electronically signed by: Kg Murray M.D. 06/17/2024 1:29 PM
--- NOTE | 2024-06-17 14:00 | Anesthesiology Progress Note ---
Date of Service June 17, 2024 Anesthesia Post Procedure Vital Signs Vital Signs: Temp Pulse Pulse Resp BP Pulse Ox O2 Del Method 06/17/24 13:55 74 15 132/65 97 Room Air 06/17/24 13:40 70 16 115/77 92 Room Air 06/17/24 13:30 72 13 130/76 95 Room Air 06/17/24 13:20 36.4 C L 70 14 130/71 97 Oxymask 06/17/24 13:10 83 19 114/67 99 Oxymask 06/17/24 13:00 75 17 122/67 98 Oxymask 06/17/24 12:50 36.8 C 83 17 117/61 95 Oxymask 06/17/24 09:30 36.6 C 73 18 164/91 H 99 Room Air O2 Flow Rate 06/17/24 13:55 06/17/24 13:40 06/17/24 13:30 06/17/24 13:20 5 06/17/24 13:10 5 06/17/24 13:00 5 06/17/24 12:50 5 06/17/24 09:30 Transfer of Care Handoff Completed per policy Notes Mental Status: alert / awake / arousable and participated in evaluation Patient Amnestic to Procedure: Yes Nausea / Vomiting: adequately controlled Pain: adequately controlled Airway Patency, RR, SpO2: stable & adequate BP & HR: stable & adequate Hydration State: stable & adequate Anesthetic Complications: no major complications apparent and Pt Satisfied with anesthetic care
[2024-06-17] MEDS ORDERED: bisacodyL 10 MG SUPP PR PRN (14:20)
[2024-06-17] MEDS ORDERED: NALOXONE HCL 0.4 MG/1 ML VIAL/CARP IV PRN (14:20)
[2024-06-17] MEDS ORDERED: MAGNESIUM HYDROXIDE SUSP 30 ML UDC PO PRN (14:20)
[2024-06-17] MEDS ORDERED: HYDROmorphone INJ 0.5 MG/0.5 ML SYR IV PRN (14:20)
[2024-06-17] MEDS ORDERED: PHARMACY GLYCEMIC MGMT CONSULT PRN (14:20)
[2024-06-17] MEDS ORDERED: METOCLOPRAMIDE HCL INJ 5 MG/ML 2 ML VIAL IV PRN (14:20)
[2024-06-17] MEDS ORDERED: NON-FORMULARY MEDICATION (Semaglutide [Ozempic] 2 mg/dose (8 mg/3 mL) pen injector) SQ SCH (14:20)
[2024-06-17] MEDS ORDERED: oxyCODONE HCL IR 5 MG TAB (IMMEDIATE RELEASE) PO PRN (14:20)
[2024-06-17] MEDS: ONDANSETRON INJ 2 MG/ML 2 ML VIAL IV PRN (14:46)
[2024-06-17] MEDS: KETOROLAC TROMETHAMINE 15 MG/ML VIAL IV SCH (15:59)
--- OUTSIDE RECORDS SUMMARY | 2024-06-17 16:39 | External Medical Summary | Summary of Care ---
Author Name Unknown Organization [facility] Address [address] [place] [address] Phone [phone] Care Team Providers Care Linen Attendant Name Role Phone Quyen Phillips DO Primary Care Provider Encounter Details Date Type Department Care Team (Late st Contact Info) Description 06/16/2024 Orders Only Family Practice [facility] [place] [address] [facility] [place] [id number] Quyen Phillips DO [address] [facility] [place] [phone] Allergies Active Allergy Reactions Criticality Noted Date Comments Codeine Nausea/vomiting 08/26/2016 documented as of this encounter (statuses as of 06/16/2024) Medications M-VIT PO TABS 1 tab daily Acti ve VITAMIN D 2000 UNIT PO CAPS 1 tablet daily Ac tive FISH OIL 1200 MG PO CAPS Take 1 Capsule by mouth in the morning and 1 Capsule before bedtime. Active CALCIUM 600+D PLUS MINERALS 600-400 MG-UNIT PO CHEW Take 1 Capsule by mouth in the morning and 1 Capsule before bedtime. Active FLONASE 50 MCG/ACT NA SUSPIndications:A llergic rhinitis Two sprays each nostril once daily 1 Bottle 11 10/05/19 13 Active Additional Information Patient taking differently: 2 SprayNasalDaily(AM), Indications: as needed, Reported on 05/24/2024 RESTASIS 0.05 % ophthalmic emulsion Instill 1 Drop into both eyes in the morning and 1 Drop before bedtime. 06/30/19 17 Active aspirin enteric coated 81 MG TBECIndications:H TN, goal below 140/90 Take 1 Tablet by mouth in the morning. Active Probiotic Product (PROBIOTIC & ACIDOPHILUS EX ST) CapsuleIndication s:Physical exam, routine Take 1 Capsule by mouth in the morning. Active Magnesium 500 MG Capsule Take 1 Capsule by mouth in the morning. Active Black Elderberry 50 MG/5ML SYRP Take by mouth. Active Clotrimazole-Beta methasone 1-0.05 % External Cream (Lotrisone)Indica tions:Vulvar candidiasis Apply topically to affected area 2 times a day. To affected area for 4 weeks, or until healed. 45 g 11 07/17/19 21 Active Albuterol Sulfate HFA 108 (90 Base) MCG/ACT Inhalation Aerosol Solution Inhale 2 Puffs by mouth 4 times a day. 18 g 3 08/15/19 21 Active Additional Information Patient taking differently:2 Puff Inhalation QID(AM/NOON/PM/HS),Indications: exercise induced asthma, Reported on 05/24/2024 NATURAL SUPPLEMENTIndicat ions:Dyslipidemia , goal to be determined Take 1 Cap by mouth daily. 30 Cap 11/02/19 21 Active AZO Cranberry 250-30 MG Oral Tablet Take by mouth. Activ e Zolpidem Tartrate 10 MG Oral Tablet (Ambien)Indicatio ns:Insomnia One pill immediately before bedtime as needed for sleep. 15 Tablet 1 12/12/19 23 Active Fluticasone Propionate HFA 110 MCG/ACT Inhalation Aerosol (Flovent HFA) Inhale 2 Puffs by mouth in the morning and 2 Puffs before bedtime. 18 g 3 01/08/20 23 Active Additional Information Patient taking differently:2 Puff Inhalation BID (.AM/PM),Indications: as needed, Reported on 05/24/2024 Hydrocortisone 2.5 % External CreamIndications: Hemorrhoids, external without complications Apply topically to affected area 3 times a day. 30 g 1 07/16/19 24 Active Semaglutide (2 MG/DOSE) 8 MG/3ML Subcutaneous Solution Pen-injector (Ozempic)Indicati ons:Type 2 diabetes mellitus with hemoglobin A1c goal of less than 7.0% ([facility]) Inject 2 mg under the skin once a week. 3 mL 11 20 24 Active Additional Information Patient taking differently:2 mg Subcutaneous QWEEK,On Mondays, Reported on 05/24/2024 Estradiol 0.1 MG/GM Vaginal Cream (Estrace)Indicati ons:Postmenopausa l atrophic vaginitis Apply 1/2 gm per vagina twice a week. 42.5 g 3 11/06/19 24 Active Meloxicam 15 MG Oral Tablet (Mobic)Indication s:Generalized osteoarthritis of multiple sites Take 1 Tablet by mouth daily as needed for Other (pain). 90 Tablet 12/03/19 24 Active metFORMIN HCl ER 500 MG Oral Tablet Extended Release 24 Hour (Glucophage XR)Indications:Pr ediabetes Take 1 Tablet by mouth in the morning. 90 Tablet 12/03/19 24 Active Additional Information Patient taking differently:500 mg OralDINNER, Reported on 05/24/2024 Omeprazole 20 MG Oral Capsule Delayed Release (PriLOSEC)Indicat ions:Gastroesopha geal reflux disease without esophagitis Take 1 Capsule by mouth in the morning. 90 Capsule 12/03/19 24 Active rOPINIRole HCl 4 MG Oral Tablet (Requip)Indicatio ns:RLS (restless legs syndrome) TAKE 1 TABLET BY MOUTH ONCE DAILY WITH DINNER. TAKE 1 TO 3 HOURS BEFORE BEDTIME WITH FOOD FOR RESTLESS LEGS 90 Tablet 12/03/19 24 Active Levothyroxine Sodium 112 MCG Oral Tablet (Levoxyl)Indicati ons:Acquired hypothyroidism Take 1 Tablet by mouth every other day. (at least 30 min prior to breakfast or other meds) alternating with 100mcg daily 45 Tablet 12/03/19 24 Active Losartan Potassium 100 MG Oral Tablet (Cozaar)Indicatio ns:HTN, goal below 140/90 Take 1 Tablet by mouth in the morning. 90 Tablet 12/03/19 24 Active Additional Information Patient taking differently:100 mg OralHS, Reported on 05/30/2024 Levothyroxine Sodium 100 MCG Oral Tablet (Levoxyl) Take 1 Tablet by mouth every other day. (at least 30 min prior to breakfast or other meds) alternating with 112mcg tablet every other day 45 Tablet 3 12/03/19 24 Active Rosuvastatin Calcium 10 MG Oral Tablet (Crestor) Take 1 Tablet by mouth in the morning. 90 Tablet 3 03/01/20 24 Active Additional Information Patient taking differently:10 mg OralHS, Reported on 05/30/2024 LORazepam 0.5 MG Oral Tablet (Ativan)Indicatio ns:Anxiety state Take 1 Tablet by mouth every 8 hours as needed for Anxiety. 60 Tablet 1 03/28/19 25 Active Hydrocortisone Acetate 25 MG Rectal Suppository (Anusol-HC)Indica tions:Rectal irritation Administer into the rectum 2 times a day in the morning and at bedtime as needed for Hemorrhoids. Up to 2 weeks. 24 Suppository 1 04/27/19 25 Active hydroCHLOROthiazi de 12.5 MG Oral Tablet Take 1 Tablet by mouth in the morning. 90 Tablet 3 05/09/19 25 Active Metoprolol Succinate ER 100 MG Oral Tablet Extended Release 24 Hour (toPROL XL)Indications:Es sential hypertension with goal blood pressure less than 140/90 TAKE 1 TABLET BY MOUTH EVERY MORNING 90 Tablet 2 05/28/19 25 Active documented as of this encounter (statuses as of 06/16/2024) Active Problems Problem Noted Date Diagnosed Date Type 2 diabetes mellitus wit h hemoglobin A1c goal of less than 7.0% 05/08/2022 Advanced directives, counseling/discussion 08/21 Inflammation of sacroiliac joint 07/09/2018 Chronic right-sided low back pain with right-beverley ed sciatica 12/01/2017 Lumbar radiculopathy 12/01/2017 Midline cystocele 08/26/2016 Essential hypertension with goal blood pressure less than 140/90 10/01/2015 Acquired hypothyroidism 10/01/2015 ADJ DISORDER W/DEPRES MOOD 10/01/2015 Gastroesophageal reflux disease without esophagi tis 10/01/2015 Dyslipidemia, goal to be determined 10/01/2015 Bronchospasm, exercise-induced 10/01/2015 Restless leg syndrome 10/01/2015 Unequal leg length 10/01/2015 documented as of this encounter (statuses as of 06/16/2024) Resolved Problems Problem Noted Date Diagnosed Date Resolved Date Prediabetes 10/27/2017 11/05/2021 Overview: Per Prediabetes protocol #1 - Bronchospasm, exercise-induced 10/06/2013 10/01/2015 Dyslipidemia, goal to be determined 02/22/2009 10/01/2015 Overview (02/22/2009): Per Lipid Taxonomy. Unequal leg length 08/28/2006 6 Torus fracture of tibia and fibula 08/25/2002 10/01/2015 Asthma with severity to be determined 01/23/1999 10/06/2013 Overview (06/25/2015): Mild ICD-10 update of inactive term ADJ DISORDER W/DEPRES MOOD 06/22/1997 0 10/01/2015 HYPOTHYROIDISM NOS 06/22/1997 6 HTN, goal below 140/90 06/22/199709/30 Mixed dyslipidemia 06/22/1997 9 Overview (02/22/2009): Per Lipid Taxonomy. Restless leg syndrome 2015 HTN, goal below 140/90 04/20 Overview (04/20/2008): Resolved per Duplicate Protocol #2. Adjustment disorder with depressed mood 04/20/2008 Overview (04/20/2008): Resolved per Duplicate Protocol #2. GERD 10/01/2015 Other specified acquired hypothyroidism 10/01/2015 documented as of this encounter (statuses as of 06/16/2024) Immunizations Name Administration Dates Next Due COVID-19 mRNA, LNP-s, No Pre serve, 2-Dose Series ([employer]) 12/24/2020,05/17/2020,04/26/2020 COVID-19, LNP-s, No Preserve , Darryn-sucrose, Ages 12+ (Pfizer) 08/24/2021 COVID-19, MRNA-LNP, 24-25, P R, 30MCG/0.3ML, IM, 12YRS AND ABOVE (Pfizer-Comirnaty) 01/01/2024 Covid-19, Mrna, Lnp-s, Pf, B ivalent, 30 Mcg, IM, 12 yrs and above (Pfizer) 12/08/2022,12/10/2021 H1N1 2009 Influenza, IM 01/28/2009 Pneumococcal Conjugate Vacc, 13 Valent (Prevnar) 02/15/2019 Pneumococcal Polysaccharide PPV23 (Pneumovax) 02/17/2020,09/26/2010 RSV Vac., Recomb, Adjuvant, PF,0.5 Ml (Arexvy) 01/06/2023 Seasonal Influenza Vac., MDV , IM, 0.5 mL (Fluzone) 11/26/2013,12/16/2012,12/04/2011,12/12,12/07/2009,11/21/2008,01/20/2008 ,01/14/2007,01/22/2006 Seasonal Influenza Virus Vac cine, Unspecified Formulation 12/09/2023 Seasonal Influenza, High Dos e, Trivalent, PF, IM (Fluzone HD) 12/21/2021 Seasonal Influenza, PF, 6 M & above, IM , (FluLaval or Fluzone) 12/19/2019,11/19/2018,12/23/2017,12/04 Seasonal Influenza, Quadriva lent Hd (Fluzone Hd) 12/31/2022,12/12/2020 Seasonal Influenza, Quadriva lent, No Preserve, IM 12/17/2015,12/20/2014 TD, Preservative Free 04/12/2015 TDAP, Age 7 and older, IM (Adacel) 08/26/2005 Varicella Zoster Vaccine Haseeb lt (Zostavax) 12/31/2011 Zoster Vaccine Recombinant (Shingrix) 12/23/2017 ,10/05/2017 documented as of this encounter Social History Tobacco Use Types Packs/Day Years Used Date Smoking Tobacco: Never Smokeless Tobacco: Never Alcohol Use Standard Drinks/Week Comments Yes 0 (1 standard drink = 0.6 oz pur e alcohol) rare PHQ-2 Answer Date Recorded PHQ-2 Score 0 07/08/2019 Hunger Vital Sign Answer Date Recorded Within the past 12 months, y ou worried that your food would run out before you got the money to buy more. Never true 11/25/19 24 Within the past 12 months, t he food you bought just didn't last and you didn't have money to get more. Never true 11/25/2023 Childcare Answer Date Recorded Do you feel overwhelmed with taking care of a child, family member or friend? No 11/25/2023 Does your family need help f inding childcare? (Household - for ages 0-17 years) Not on file 11/25/2023 Clothing Answer Date Recorded Have you been unable to get clothing when it was really needed? No 11/25/2023 Is your family able to get c lothes or diapers when needed? (Household - for ages 0-17 years) Not on file 11/25/2023 Personal Safety Answer Date Recorded Do you feel unsafe or have concerns for your saf ety? No 11/25/2023 Do you have concerns for you r family's safety? (Household - for ages 0-17 years) Not on file 11/25/2023 Utilities Answer Date Recorded Do you have trouble paying y our heating, water, or electric bill? No 11/25/2023 Is your family able to pay t he heat, water, or electric bill? (Household - for ages 0-17 years) Not on file 11/25/2023 Does your family have access to good internet? (Household - for ages 0-17 years) Not on file 11/25/2023 Employment Status Answer Date Recorded Are you unemployed or without regular income? No 11/25/2023 Does the household have a [facility] source [facility] income? (Household - for ages 0-17 years) Not on file 11/25/2023 Social Connections Answer Date Recorded How often do you feel lonely or isolated from th ose around you? Never 11/25/2023 Financial Resource Strain Answer Date R ecorded Do you have any trouble payi ng for your medications, or do you think you might in the future? No 11/25/2023 Does your family have troubl e paying for medicine? (Household - for ages 0-17 years) Not on file 11/25/2023 Transportation Needs Answer Date Record ed Do you have trouble getting a ride to medical visits or work? (Adult - for ages 18 years and over) Not on file 11/25/2023 Does your family have a hard time getting a ride to doctors visits? (Household - for ages 0-17 years) Not on file 11/25/2023 Has lack of transportation k ept you from medical appointments, meetings, work, or from getting things needed for daily living? Check all that apply. No 11/25/2023 Do you (or your family) have trouble finding or paying for a ride (transportation)? (Household - for ages 0-17 years) Not on file 11/25/2023 Housing Stability Answer Date Recorded Do you currently live in a s helter or have no steady place to sleep at night? No 11/25/2023 Do you think you are at risk of becoming homeless? (Adult - for ages 18 years and over) Not on file 11/25/2023 Does your family worry about paying for your home or becoming homeless? (Household - for ages 0-17 years) Not on file 0 11/25/2023 Are you homeless or worried that you might be in the future? No 11/25/2023 Are you (or your family) nicky eless or worried that you might be in the future? (Household - for ages 0-17 years) Not on file Food Insecurity Answer Date Recorded Do you need food for this week? No 11/25/2023 Are you able to get enough f ood for your family? (Household - for ages 0-17 years) Not on file 11/25/2023 Does your family need food t his week? (Household - for ages 0-17 years) Not on file 11/25/2023 Do you always have enough fo od for your family? (Household - for ages 0-17 years) Not on file 11/25/2023 Food Insecurity Answer Date Recorded Within the past 12 months, y ou worried that your food would run out before you got the money to buy more. Never true 11/25/19 24 Within the past 12 months, t he food you bought just didn't last and you didn't have money to get more. Never true 11/25/2023 Do you need food for this week? 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 Not on file Not on file [employer] Not on file Not on file Not on file documented as of this encounter Plan of Treatment Upcoming Encounters Date Type Department Care Team (Late st Contact Info) Description 09/02/2024 7:40 AM EDT Office Visit Family Practice [place], [place] [address] [place], [place] [address] Quyen Phillips, [address] [place], [place] [address] Health Maintenance Due Date Last Done Comments Depression Screening 1966 Cologuard 1999 Fecal Occult Blood Test 1999 Sigmoidoscopy 1999 Adult Wellness Visit 01/19/2020 COVID-19 Vaccine ( season) 2024 01/01/2024, 12/08/2022, 12/08/2022, Additional history exists HbA1c 11/24/2024 05/24/2024, 11/14, 05/08/2023, Additional history exists Albumin/Creatinine Ratio 11/26/2024 11/27/2023, 11/2022 Diabetic Foot Exam 12/07/2024 12/08/2023, 11/21/2022 Mammogram 12/31/2024 01/01/2024, 11/2022, 12/22/2022, Additional history exists DTap/Tdap Vaccines (3 - Td or Tdap) 04/12/2025 04/12/2015, 08/26/2005, 07/05/1993 GFR 04/27/2025 04/27/2024, 11/14, 11/06/2022, Additional history exists TSH 04/27/2025 04/27/2024, 11/14, 11/06/2022, Additional history exists Diabetic Eye Exam 05/05/2025 05/05/2024, , 08/27/2022, Additional history exists DXA Scan 04/18/2026 04/18/2019 Lipid Panel 05/24/2029 05/24/2024, 11/14, 11/06/2022, Additional history exists Colonoscopy 05/30/2034 05/30/2024, 05/14, 05/22/2014, Additional history exists Colorectal Cancer Screening 05/30/2034 Hepatitis B Vaccine Completed 01/26/1998, 08/25/1997, 07/28/1997 Zoster Vaccines Completed 12/23/2017, 09/14, 12/31/2011 Pneumococcal Vaccine: 50+ Years Completed 02/17/2020, 02/15/2019, 09/26/2010 Influenza Vaccine (FLU shot) Completed , 12/31/2022, 12/21/2021, Additional history exists HPV (Gardasil) Vaccine Aged Out No lo nger eligible based on patient's age to complete this topic MENINGOCOCCAL (MENACTRA/MENVEO) Aged Out No longer eligible based on patient's age to complete this topic Meningitis B Vaccine (Bexsero/Trumemba) Aged Out No longer eligible based on patient's age to complete this topic documented as of this encounter Medical Devices Implanted Type Area Ice Sculptor Device Identifier Shelf Expiration Date Model / Serial / Lot Envista Toric Iol Implanted:Qty: 1 on 11/08/2018 by Luis Daugherty MD at [facility] Right: Eye 10/13/2021 [id number] / / [id number] documented as of this encounter Procedures Procedure Name Priority Date/Time Associated Diagnosis Comments DIABETIC EYE EXAM Routine 05/05/2024 documented in this encounter Results * DIABETIC EYE EXAM (05/05/2024) 05/05/2024 us History Per Patient OTHER Final Result OUTSIDE LAB (SEE SCANNED REPORT) documented in this encounter Advance Directives Documents on File Type Date Recorded Patient Press Breaker Expl anation Advance Directives and Living Will 09/02/2022 ADVANCE DIRECTIVE / LIVING WILL Power of Neighborhood Conservation Officer 09/02/2022 POWER OF A TTORNEY Advance Directives and Living Will 11/05/2019 ADVANCE DIRECTIVE / LIVING WILL Advance Directives and Living Will 10/10/1999 Care Teams Linen Attendant Relationship Specialty Start Date End Date Quyen Phillips DO [address] [place] [address] PCP - General Family Medicine 08/26/16 documented as of this encounter
--- OUTSIDE RECORDS SUMMARY | 2024-06-17 16:39 | External Medical Summary | Summary of Care ---
Author Name Unknown Organization [facility] [address] [address] Phone [phone] Care Team Providers Care County Director Name Role Phone Quyen Phillips DO Primary Care Provider Reason for Visit * Auth/Cert Specialty Diagnoses / Procedures Referred By Karson t Referred To Contact Diagnoses Special screening for malignant neoplasms, colon Special screening for malignant neoplasms, colon [Z12.11] Procedures COLONOSCOPY, DIAGNOSTIC (RECTUM) COLONOSCOPY FLEXIBLE PROXIMAL DIAGNOSTIC Abimael Masters MD [address] [place] [address] Phone: tel: fax: [facility], Endoscopy Room [facility] [address] [place] [address] Phone: tel: Referral ID Status Reason Start Date Expiration Date Visits Re quested Visits Authorized [id number] Encounter Details Date Type Department Care Team (Latest Contact Info) Description 05/30/2024 9:16 AM EDT - 05/30/2024 11:55 AM EDT Hospital Encounter [facility], Endoscopy Room [facility] [address] [place] [address] Concetta Edward DO [address] [place] [address] Colonoscopy Discharge Disposition: Home - Self Care Allergies Active Allergy Reactions Criticality Noted Date Comments Codeine Nausea/vomiting 08/26/2016 documented as of this encounter (statuses as of 05/31/2024) Medications M-VIT PO TABS 1 tab daily [...] before bedtime. Active FLONASE 50 MCG/ACT NA SUSPIndications: Allergic rhinitis Two sprays each nostril once daily 1 Bottle 11 013 Active Additional Information Patient taking differently: 2 SprayNasalDaily(AM), Indications: as needed, Reported on 05/24/2024 RESTASIS 0.05 % ophthalmic emulsion Instill 1 Drop into both eyes in the morning and 1 Drop before bedtime. 017 Active aspirin enteric coated 81 MG TBECIndications: HTN, goal below 140/90 Take 1 Tablet by mouth in the morning. Active Probiotic Product (PROBIOTIC & ACIDOPHILUS EX ST) CapsuleIndicatio ns:Physical exam, routine Take 1 Capsule by mouth in the morning. Active Magnesium 500 MG Capsule Take 1 Capsule by mouth in the morning. Active Black Elderberry 50 MG/5ML SYRP Take by mouth. Active Clotrimazole-Bet amethasone 1-0.05 % External Cream (Lotrisone)Indic ations:Vulvar candidiasis Apply topically to affected area 2 times a day. To affected area for 4 weeks, or until healed. 45 g 11 021 Active Albuterol Sulfate HFA 108 (90 Base) MCG/ACT Inhalation Aerosol Solution Inhale 2 Puffs by mouth 4 times a day. 18 g 3 021 Active Additional Information Patient taking differently:2 Puff Inhalation QID(AM/NOON/PM/HS),Indications: exercise induced asthma, Reported on 05/24/2024 NATURAL SUPPLEMENTIndica tions:Dyslipidem ia, goal to be determined Take 1 Cap by mouth daily. 30 Cap 021 Active AZO Cranberry 250-30 MG Oral Tablet Take by mouth. Activ e Zolpidem Tartrate 10 MG Oral Tablet (Ambien)Indicati ons:Insomnia One pill immediately before bedtime as needed for sleep. 15 Tablet 1 023 Active Fluticasone Propionate HFA 110 MCG/ACT Inhalation Aerosol (Flovent HFA) Inhale 2 Puffs by mouth in the morning and 2 Puffs before bedtime. 18 g 3 023 Active Additional Information Patient taking differently:2 Puff Inhalation BID (.AM/PM),Indications: as needed, Reported on 05/24/2024 Hydrocortisone 2.5 % External CreamIndications :Hemorrhoids, external without complications Apply topically to affected area 3 times a day. 30 g 1 024 Active Semaglutide (2 MG/DOSE) 8 MG/3ML Subcutaneous Solution Pen-injector (Ozempic)Indicat ions:Type 2 diabetes mellitus with hemoglobin A1c goal of less than 7.0% (HCC) Inject 2 mg under the skin once a week. 3 mL 11 024 Active Additional Information Patient taking differently:2 mg Subcutaneous QWEEK,On Mondays, Reported on 05/24/2024 Estradiol 0.1 MG/GM Vaginal Cream (Estrace)Indicat ions:Postmenopau zainab atrophic vaginitis Apply 1/2 gm per vagina twice a week. 42.5 g 3 024 Active Meloxicam 15 MG Oral Tablet (Mobic)Indicatio ns:Generalized osteoarthritis of multiple sites Take 1 Tablet by mouth daily as needed for Other (pain). 90 Tablet 3 024 Active metFORMIN HCl ER 500 MG Oral Tablet Extended Release 24 Hour (Glucophage XR)Indications:P rediabetes Take 1 Tablet by mouth in the morning. 90 Tablet 3 024 Active Additional Information Patient taking differently:500 mg OralDINNER, Reported on 05/24/2024 Omeprazole 20 MG Oral Capsule Delayed Release (PriLOSEC)Indica tions:Gastroesop hageal reflux disease without esophagitis Take 1 Capsule by mouth in the morning. 90 Capsule 3 024 Active rOPINIRole HCl 4 MG Oral Tablet (Requip)Indicati ons:RLS (restless legs syndrome) TAKE 1 TABLET BY MOUTH ONCE DAILY WITH DINNER. TAKE 1 TO 3 HOURS BEFORE BEDTIME WITH FOOD FOR RESTLESS LEGS 90 Tablet 3 024 Active Levothyroxine Sodium 112 MCG Oral Tablet (Levoxyl)Indicat ions:Acquired hypothyroidism Take 1 Tablet by mouth every other day. (at least 30 min prior to breakfast or other meds) alternating with 100mcg daily 45 Tablet 3 024 Active Losartan Potassium 100 MG Oral Tablet (Cozaar)Indicati ons:HTN, goal below 140/90 Take 1 Tablet by mouth in the morning. 90 Tablet 3 024 Active Additional Information Patient taking differently:100 mg OralHS, Reported on 05/30/2024 Levothyroxine Sodium 100 MCG Oral Tablet (Levoxyl) Take 1 Tablet by mouth every other day. (at least 30 min prior to breakfast or other meds) alternating with 112mcg tablet every other day 45 Tablet 3 024 Active Rosuvastatin Calcium 10 MG Oral Tablet (Crestor) Take 1 Tablet by mouth in the morning. 90 Tablet 3 024 Active Additional Information Patient taking differently:10 mg OralHS, Reported on 05/30/2024 LORazepam 0.5 MG Oral Tablet (Ativan)Indicati ons:Anxiety state Take 1 Tablet by mouth every 8 hours as needed for Anxiety. 60 Tablet 1 025 Active Hydrocortisone Acetate 25 MG Rectal Suppository (Anusol-HC)Indic ations:Rectal irritation Administer into the rectum 2 times a day in the morning and at bedtime as needed for Hemorrhoids. Up to 2 weeks. 24 Suppository 1 025 Active hydroCHLOROthiaz stacia 12.5 MG Oral Tablet Take 1 Tablet by mouth in the morning. 90 Tablet 3 025 Active Metoprolol Succinate ER 100 MG Oral Tablet Extended Release 24 Hour (toPROL XL)Indications:E ssential hypertension with goal blood pressure less than 140/90 TAKE 1 TABLET BY MOUTH EVERY MORNING 90 Tablet 2 025 Active Metoprolol Succinate ER 100 MG Oral Tablet Extended Release 24 Hour (toPROL XL)Indications:E ssential hypertension with goal blood pressure less than 140/90 TAKE 1 TABLET BY MOUTH EVERY MORNING 90 Tablet 1 024 2024 Discontinued documented as of this encounter (statuses as of 05/31/2024) Active Problems Problem Noted Date Diagnosed Date [...] as of this encounter (statuses as of 05/31/2024) Resolved Problems Problem Noted Date Diagnosed Date [...] as of this encounter (statuses as of 05/31/2024) Immunizations Name Administration Dates Next Due COVID-19 mRNA, LNP-s, No Pre serve, 2-Dose Series ([employer]) 12/24/2020,05/17/2020,04/26/2020 COVID-19, LNP-s, No Preserve , Darryn-sucrose, Ages 12+ (Pfizer) 08/24/2021 COVID-19, MRNA-LNP, 24-25, P R, 30MCG/0.3ML, IM, 12YRS AND ABOVE ([employer]) 01/01/2024 Covid-19, Mrna, Lnp-s, Pf, B ivalent, 30 Mcg, IM, 12 yrs and above ([employer]) 12/08/2022,12/10/2021 H1N1 2009 Influenza, IM 01/28/2009 Pneumococcal [...] older, IM (Adacel) 08/26/2005 Varicella Zoster Vaccine (Adult) 12/31/2011 Zoster Vaccine Recombinant (Shingrix) 12/23/2017 ,10/05/2017 [...] No 11/25/2023 Does the household have a re gular source of income? (Household - for ages [...] on file documented as of this encounter Last Filed Vital Signs Vital Sign Reading Time Taken Comments Blood Pressure 113/67 05/30/2024 11:49 AM EDT Pulse 85 05/30/2024 11:49 AM EDT Temperature 36.2 °C (97.2 °F) 05/30/2024 11:49 AM E DT Respiratory Rate 16 05/30/2024 11:49 AM EDT Oxygen Saturation 96% 05/30/2024 11:49 AM EDT Inhaled Oxygen Concentration - - Weight 68.9 kg (152 lb) 05/24/2024 11:35 AM EDT Height 163.8 cm (5' 4.5") 05/24/2024 11:35 AM ED T Body Mass Index 25.69 05/24/2024 11:35 AM EDT documented in this encounter H&P Notes * Concetta Edward, - 05/30/2024 10:57 AM EDT Endoscopy Pre-Procedure Assessment Name: Guadalupe Delgado Date: 05/30/2024 Time: 10:57 AM Procedure: Colonoscopy; with Indication(s) of average risk screening Endoscopy Pre-Procedure Assessment: Prior to the procedure, the patient was identified. The patient's history, medications and allergies were reviewed as per the Anesthesia Assessment. The patient is competent. The risks and benefits of the proposed procedure and the planned sedation were discussed with the patient. All questions were answered and informed consent for the procedure was obtained. This patient has undergone a preprocedural evaluation. A determination has been made to proceed with the planned procedure under [facility] procedural guidelines and the [facility] Non-Emergent, Elective Medical Services and Treatment Recommendations (published on 06-21-19). The community and hospital prevalence of COVID-19 has been discussed as well as this patient's specific risks associated with SARS-CoV-19 infection. Based upon the clinical acuity and patient-specific care considerations, this procedure is deemed a Tier II - Intermediate acuity treatment or service with either progression or the threat of progressive disease related to the delay in treatment. Not providing the service has the potential for increasing morbidity or mortality. BP 170/77 | Pulse 77 | Temp 36.8 °C (98.2 °F) (Tympanic) | Resp 16 | Ht 1.638 m (5' 4.5") | Wt 68.9 kg (152 lb) | LMP 02/25/2007 | SpO2 99% | BMI 25.69 kg/m² | BSA 1.77 m² Prior to Admission medications Medication Sig Last Dose Discont. Metoprolol Succinate ER 100 MG Oral Tablet Extended Release 24 Hour (toPROL XL) TAKE 1 TABLET BY MOUTH EVERY MORNING 05/30/2024 Morning hydroCHLOROthiazide 12.5 MG Oral Tablet Take 1 Tablet by mouth in the morning. 05/24/2024 Morning LORazepam 0.5 MG Oral Tablet (Ativan) Take 1 Tablet by mouth every 8 hours as needed for Anxiety. Past Week Rosuvastatin Calcium 10 MG Oral Tablet (Crestor) Take 1 Tablet by mouth in the morning. Patient taking differently: Take 1 Tablet by mouth at bedtime. 05/29/2024 Levothyroxine Sodium 100 MCG Oral Tablet (Levoxyl) Take 1 Tablet by mouth every other day. (at least 30 min prior to breakfast or other meds) alternating with 112mcg tablet every other day 05/30/2024 Morning Levothyroxine Sodium 112 MCG Oral Tablet (Levoxyl) Take 1 Tablet by mouth every other day. (at least 30 min prior to breakfast or other meds) alternating with 100mcg daily 05/29/2024 Losartan Potassium 100 MG Oral Tablet (Cozaar) Take 1 Tablet by mouth in the morning. Patient taking differently: Take 1 Tablet by mouth at bedtime. 05/29/2024 Meloxicam 15 MG Oral Tablet (Mobic) Take 1 Tablet by mouth daily as needed for Other (pain). 05/27/2024 metFORMIN HCl ER 500 MG Oral Tablet Extended Release 24 Hour (Glucophage XR) Take 1 Tablet by mouthin the morning. Patient taking differently: Take 1 Tablet by mouth daily with dinner. 05/28/2024 Omeprazole 20 MG Oral Capsule Delayed Release (PriLOSEC) Take 1 Capsule by mouth in the morning. 05/29/2024 rOPINIRole HCl 4 MG Oral Tablet (Requip) TAKE 1 TABLET BY MOUTH ONCE DAILY WITH DINNER. TAKE 1 TO 3HOURS BEFORE BEDTIME WITH FOOD FOR RESTLESS LEGS 05/29/2024 Estradiol 0.1 MG/GM Vaginal Cream (Estrace) Apply 1/2 gm per vagina twice a week. Past Week Semaglutide (2 MG/DOSE) 8 MG/3ML Subcutaneous Solution Pen-injector (Define My Style) Inject 2 mg under theskin once a week. Patient taking differently: Inject 2 mg under the skin once a week. On Mondays05/23/2024 Hydrocortisone 2.5 % External Cream Apply topically to affected area 3 times a day. Past Month AZO Cranberry 250-30 MG Oral Tablet Take by mouth. Past Week NATURAL SUPPLEMENT Take 1 Cap by mouth daily. Past Week Clotrimazole-Betamethasone 1-0.05 % External Cream (Lotrisone) Apply topically to affected area 2 times a day. To affected area for 4 weeks, or until healed. Past Month Black Elderberry 50 MG/5ML SYRP Take by mouth. Past Week Magnesium 500 MG Capsule Take 1 Capsule by mouth in the morning. Past Week aspirin enteric coated 81 MG TBEC Take 1 Tablet by mouth in the morning. 05/24/2024 Probiotic Product (PROBIOTIC & ACIDOPHILUS EX ST) Capsule Take 1 Capsule by mouth in the morning. Past Week RESTASIS 0.05 % ophthalmic emulsion Instill 1 Drop into both eyes in the morning and 1 Drop before bedtime. 05/30/2024 Morning CALCIUM 600+D PLUS MINERALS 600-400 MG-UNIT PO CHEW Take 1 Capsule by mouth in the morning and 1 Capsule before bedtime. Past Week FISH OIL 1200 MG PO CAPS Take 1 Capsule by mouth in the morning and 1 Capsule before bedtime. Past Week VITAMIN D 2000 UNIT PO CAPS 1 tablet daily Past Week M-VIT PO TABS 1 tab daily Past Week Hydrocortisone Acetate 25 MG Rectal Suppository (Anusol-HC) Administer into the rectum 2 times a day in the morning and at bedtime as needed for Hemorrhoids. Up to 2 weeks. Over 30 Days Fluticasone Propionate HFA 110 MCG/ACT Inhalation Aerosol (Flovent HFA) Inhale 2 Puffs by mouth in the morning and 2 Puffs before bedtime. Patient taking differently: Inhale 2 Puffs by mouth in the morning and 2 Puffs before bedtime. Over30 Days Zolpidem Tartrate 10 MG Oral Tablet (Ambien) One pill immediately before bedtime as needed for sleep. Over 30 Days Albuterol Sulfate HFA 108 (90 Base) MCG/ACT Inhalation Aerosol Solution Inhale 2 Puffs by mouth 4 times a day. Patient taking differently: Inhale 2 Puffs by mouth in the morning and 2 Puffs at noon and 2 Puffs in the evening and 2 Puffs before bedtime. Over 30 Days FLONASE 50 MCG/ACT NA SUSP Two sprays each nostril once daily Patient taking differently: Administer 2 Sprays into nostril in the morning. Over 30 Days Review of patient's allergies indicates: Allergen Reactions Codeine Nausea/vomiting Physical Exam: Mental Status Examination: alert and oriented. General: nad, calm Airway Examination: normal oropharyngeal airway and neck mobility. Respiratory Examination: symmetrical excursion Cardiac: RRR, no murmurs Abd:soft/ntd ASA Grade: II - A patient with mild systemic disease. After reviewing the risks and benefits, the patient was deemed in satisfactory condition to undergothe procedure. The anesthesia plan was to use general anesthesia. Concetta Edward DO Gastroenterology and Hepatology 05/30/2024 documented in this encounter Procedure Notes * Quyen Phillips DO - 05/30/2024 11:03 AM EDTAssociated Order(s): COLONOSCOPY [facility] Patient Name: Guadalupe Delgado Procedure Date: 05/30/2024 11:03 AM Date of : 1955 Admit Type: Outpatient Note Status: Finalized Date of : 1955 Admit Type: Outpatient Age: 69 Room: [facility] 3 Gender: Female Note Status: Finalized Procedure: Colonoscopy Indications: Screening for colorectal malignant neoplasm Providers: Concetta Edward DO (Doctor) Patient Profile: This is a 69 year old female. Refer to note in patient chart for documentation of history and physical. Referring MD: Quyen Phillips DO (Referring MD) Medicines: General Anesthesia Complications: No immediate complications. Procedure: Pre-Anesthesia Assessment: - Prior to the procedure, a History and Physical was performed, and patient medications and allergies were reviewed. The risks and benefits of the procedure and the sedation options and risks were discussed with the patient. All questions were answered and informed consent was obtained. Patient identification and proposed procedure were verified by the physician, the nurse and the crankshaft balancer in the procedure room. Mental Status Examination: alert and oriented. Airway Examination: Mallampati Class II (the uvula but not tonsillar pillars visualized). Respiratory Examination: clear to auscultation. CV Examination: RRR, no murmurs, no S3 or S4. Prophylactic Antibiotics: The patient does not require prophylactic antibiotics. Prior Anticoagulants: The patient has taken no anticoagulant or antiplatelet agents except for aspirin. ASA Grade Assessment: II - A patient with mild systemic disease. After reviewing the risks and benefits, the patient was deemed in satisfactory condition to undergo the procedure. The anesthesia plan was to use general anesthesia. Immediately prior to administration of medications, the patient was re-assessed for adequacy to receive sedatives. The physical status of the patient was re-assessed after the procedure. After I obtained informed consent, the scope was passed under direct vision. All instruments were visually inspected immediately before and after removal from the patient to ensure they are fully intact. Throughout the procedure, the patient's blood pressure, pulse, and oxygen saturations were monitored continuously. The PCF-180AL Colonoscope ([id number]) was introduced through the anus and advanced to the cecum, identified by appendiceal orifice and ileocecal valve. The colonoscopy was performed without difficulty. The patient tolerated the procedure well. The quality of the bowel preparation was good. Findings & Specimens: Hemorrhoids were found on perianal exam. The colon (entire examined portion) appeared normal. The retroflexed view of the distal rectum and anal verge was normal and showed no anal or rectal abnormalities. Impression: - Hemorrhoids found on perianal exam. - The entire examined colon is normal. - No specimens collected. Recommendation: - Patient has a contact number available for emergencies. The signs and symptoms of potential delayed complications were discussed with the patient. Return to normal activities tomorrow. Written discharge instructions were provided to the patient. - The patient will be observed post-procedure, until all discharge criteria are met. - Discharge patient to home (with escort). - Resume previous diet. - Continue present medications. - Repeat colonoscopy in 10 years for screening purposes. Concetta Edward DO 05/30/2024 11:26:08 AM This report has been signed electronically. documented in this encounter Nursing Notes * Radames Penn RN - 05/30/2024 11:53 AM EDT Patient is alert, pain free, tolerating po fluids prior to discharge. Patient has been visited by Dr. Edward. Patient has received and demonstrates understanding of discharge instructions. Patient ambulated to private auto accompanied by endo staff. * Radames Penn RN - 05/30/2024 11:53 AM EDT Pt sitting at bedside dressing self denies any pain or dizziness. * Radames Penn RN - 05/30/2024 11:38 AM EDT Pt sitting up in bed tolerating liquids well. Dr Edward in and reviewed procedure results with pt, pt verbalized understanding. * Kye Mcneill RN - 05/30/2024 11:26 AM EDT No abdominal pressure given See anesthesia record for medication administered during procedure. Kye Mcneill RN Pre cleaning of scope at the bedside started by radiologic technician. * Radames Penn RN - 05/30/2024 11:26 AM EDT Pt received in recovery sleeping on L side easily arousable by name, abd is soft and non distended,pt denies any pain. VSS * Belem Perez RN - 05/30/2024 9:48 AM EDT Pt prepped and ready for anesthesia to assess. Call morris in reach. documented in this encounter Plan of Treatment Upcoming Encounters Date Type Department Care Team (Late st Contact Info) Description 06/21/2024 10:20 AM EDT Office Visit Family Practice [facility] [address] [place] [address] Quyen Phillips DO [address] [place] [address] Scheduled Orders Name Type Priority Associated Diagnoses Orde r Schedule GLUCOSE METER, POINT OF CARE (COMMUNICATION ORDER) Point of Care Testing Routine As Needed until discontinued starting 05/30/2024 Health Maintenance Due Date Last Done Comments Cologuard 1999 Fecal Occult Blood Test 1999 Sigmoidoscopy 1999 Adult Wellness Visit 01/19/2020 Depression Screening 07/04/2020 07/05/2019 COVID-19 Vaccine ( season) 2024 01/01/2024, 12/08/2022, 12/08/2022, Additional history exists Colonoscopy 05/22/2024 05/30/2024, 11/2014, 05/22/2014, Additional history exists Colorectal Cancer Screening 05/22/2024 Diabetic Eye Exam 07/08/2024 07/09/2023, , 08/27/2022, Additional history exists HbA1c 11/24/2024 05/24/2024, 11/14, 05/08/2023, Additional history exists Albumin/Creatinine Ratio 11/26/2024 11/27/2023, 11/2022 Diabetic Foot Exam 12/07/2024 12/08/2023, 11/21/2022 Mammogram 12/31/2024 01/01/2024, 11/2022, 12/22/2022, Additional history exists DTap/Tdap Vaccines (3 - Td or Tdap) 04/12/2025 04/12/2015, 08/26/2005, 07/05/1993 GFR 04/27/2025 04/27/2024, 11/14, 11/06/2022, Additional history exists TSH 04/27/2025 04/27/2024, 11/14, 11/06/2022, Additional history exists DXA Scan 04/18/2026 04/18/2019 Lipid Panel 05/24/2029 05/24/2024, 11/14, 11/06/2022, Additional history exists Hepatitis B Vaccine Completed 01/26/1998, 08/25/1997, 07/28/1997 [...] this encounter Medical Devices Implanted Type Area Lunch Wagon Operator Device Identifier Shelf Expiration Date Model / Serial / Lot Envista Toric Iol Implanted:Qty: 1 on 11/08/2018 by Luis Daugherty MD at [facility] Right: Eye 10/13/2021 [id number] / / [id number] documented as of this encounter Procedures Procedure Name Priority Date/Time Associated Diagnosis Comments COLONOSCOPY 05/30/2024 11:03 AM EDT GLUCOSE METER, POINT OF CARE JERILYN 05/30/2024 9:44 AM EDT documented in this encounter Results * COLONOSCOPY (05/30/2024 11:03 AM EDT) 05/30/2024 11:0 3 AM EDT Narrative Procedure Note Quyen Phillips DO - 05/30/2024 11:03 AM EDT [facility] Patient Name: Guadalupe Delgado Procedure Date: 05/30/2024 11:03 AM Date of : 1955 Admit Type: Outpatient Note Status:Finalized Date of : 1955 Admit Type: Outpatient Age: 69 Room: [facility] Gender: Female Note Status: Finalized Procedure: Colonoscopy Indications: Screening for colorectal malignant neoplasm Providers: Concetta Edward DO (Doctor) Patient Profile: This is a 69 year old female. Refer to note inpatient chart for documentation of history and physical. Referring MD: Quyen Phillips DO (Referring MD) Medicines: General Anesthesia Complications: No immediate complications. Procedure: Pre-Anesthesia Assessment: - Prior to the procedure, a History and Physicalwas performed, and patient medications and allergies were reviewed. The risksand benefits of the procedure and the sedation options and risks were discussed withthe patient. All questions were answered and informed consent was obtained. Patientidentification and proposed procedure were verified by the physician, the nurseand the crankshaft balancer in the procedure room. Mental Status Examination: alertand oriented. Airway Examination: Mallampati Class II (the uvula but not tonsillarpillars visualized). Respiratory Examination: clear to auscultation. CV Examination:RRR, no murmurs, no S3 or S4. Prophylactic Antibiotics: The patient does notrequire prophylactic antibiotics. Prior Anticoagulants: The patient has taken noanticoagulant or antiplatelet agents except for aspirin. ASA Grade Assessment: II - Apatient with mild systemic disease. After reviewing the risks and benefits, the patientwas deemed in satisfactory condition to undergo the procedure. The anesthesiaplan was to use general anesthesia. Immediately prior to administration ofmedications, the patient was re-assessed for adequacy to receive sedatives. Thephysical status of the patient was re-assessed after the procedure. After I obtained informed consent, the scope waspassed under direct vision. All instruments were visually inspected immediatelybefore and after removal from the patient to ensure they are fully intact. Throughout the procedure, the patient's bloodpressure, pulse, and oxygen saturations were monitored continuously. The PCF-180ALColonoscope ([id number]) was introduced through the anus and advanced to the cecum,identified by appendiceal orifice and ileocecal valve. The colonoscopy was performedwithout difficulty. The patient tolerated the procedure well. The quality of thebowel preparation was good. Findings & Specimens: Hemorrhoids were found on perianal exam. The colon (entire examined portion) appeared normal. The retroflexed view of the distal rectum and anal verge was normaland showed no anal or rectal abnormalities. Impression: - Hemorrhoids found on perianal exam. - The entire examined colon is normal. - No specimens collected. Recommendation: - [facility] The signs and symptoms of potential delayed complications were discussed withthe patient. Return to normal activities tomorrow. Written discharge instructionswere provided to the patient. - The patient will be observed post-procedure,until all discharge criteria are met. - Discharge patient to home (with escort). - Resume previous diet. - Continue present medications. - Repeat colonoscopy in 10 years for screeningpurposes. Concetta Edward DO 05/30/2024 11:26:08 AM This report has been signed electronically. us Quyen Phillips DO GASTRO LOWER Final R esult * GLUCOSE METER, POINT OF CARE (05/30/2024 9:44 AM EDT) Glucose - POCT 108 70 - 120 mg/dL 05/30/2024 9:51 AM EDT [facility] 57-00 Blood Whole blood specimen / Unknown 05/30/2024 9:44 AM EDT 05/30/2024 9:51 AM EDT Concetta Edward DO LAB POINT OF C ARE TEST DOCKED DEVICE UNSOLICITED RESULTS Final Result [facility] [address]- [address] [place] [address] documented in this encounter Administered Medications Inactive Administered Medications - up to 3 most recent administrations Medication Order MAR Action Action Date Dose Rate Site Isolyte-S pH 7.4 infusion Intravenous, at 75 mL/hr, for Outpatient patient Plasma-LYTE 148, isolyte-S, and isolyte-S pH 7.4 are considered equivalent - including for MAR barcode scanning., CONTINUOUS, Starting on Thu05/30/24 at 1000, Until Thu05/30/24 at 1723, Pre-Op Restarted 05/30/2024 11:25 AM EDT Continue from Pre-Op 05/30/2024 11:04 AM EDT 75 mL/hr New Bag 05/30/2024 9:48 AM EDT 75 mL/hr 75 mL/hr documented in this encounter Active and Recently Administered Medications Times are shown in EDT. Continuous Medication Order 05/28/2024 05/29/2024 05/30/2024 Isolyte-S pH 7.4 infusion Intravenous, at 75 mL/hr, for Outpatient patient Plasma-LYTE 148, isolyte-S, and isolyte-S pH 7.4 are considered equivalent - including for MAR barcode scanning., CONTINUOUS, Starting on Thu05/30/24 at 1000, Until Thu05/30/24 at 1723, Pre-Op 0948 (New Bag - Prov ider: Belem Perez RN)1104 (Continue from Pre-Op - Provider: Esther Li CRNA)1124 (Paused - Provider: Esther Li CRNA - Comment: Switch to gravity)1125 (Restarted - Provider: Esther Li CRNA) documented in this encounter Advance Directives Documents on File Type Date Recorded 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
--- OUTSIDE RECORDS SUMMARY | 2024-06-17 16:40 | External Medical Summary ---
Author Name Unknown Address Unknown Organization : Laboratory Report Ordering Provider Test Date Status JULES VERA 05/30/2024 09:44:29 Final Observation Date Value Abnormality Reference (Units ) Status Glucose Point of Care 05/30/2024 09:44:29 108 70-120 (mg/dL) Final Performing Location
--- OUTSIDE RECORDS SUMMARY | 2024-06-17 16:40 | External Medical Summary | Summary of Care ---
Author Name Unknown Organization [facility] Address [address] [place] [address] Phone [phone] Care Team Providers Care Medical Practice Assistant Name Role Phone Marcello Phillips DO Primary Care Provider Reason for Visit * Reason Comments eRx-Medication Refill Encounter Details Date Type Department Care Team (Late st Contact Info) Description 05/26/2024 Refill Family Practice [facility] [place] [address] [place] [address] Marcello Phillips DO [address] [place] [address] Essential hypertension with goal blood pressure less than 140/90 Allergies Active Allergy Reactions Criticality Noted Date Comments Codeine Nausea/vomiting 08/26/2016 documented as of this encounter (statuses as of 05/27/2024) Medications M-VIT PO TABS 1 tab daily [...] hemoglobin A1c goal of less than 7.0% ([facility]) Inject 2 mg under the skin once a week. 3 mL Active Additional Information Patient taking differently:2 mg Subcutaneous QWEEK,On Mondays, Reported on 05/24/2024 Estradiol 0.1 MG/GM Vaginal Cream (Estrace)Indicat ions:Postmenopau zainab atrophic vaginitis Apply 1/2 gm per vagina twice a week. 42.5 g Active Meloxicam 15 MG Oral Tablet (Mobic)Indicatio ns:Generalized osteoarthritis of multiple sites Take 1 Tablet by mouth daily as needed for Other (pain). 90 Tablet Active metFORMIN HCl ER 500 MG Oral Tablet Extended Release 24 Hour (Glucophage XR)Indications:P rediabetes Take 1 Tablet by mouth in the morning. 90 Tablet Active Additional Information Patient taking differently:500 mg OralDINNER, Reported on 05/24/2024 Omeprazole 20 MG Oral Capsule Delayed Release (PriLOSEC)Indica tions:Gastroesop hageal reflux disease without esophagitis Take 1 Capsule by mouth in the morning. 90 Capsule Active rOPINIRole HCl 4 MG Oral Tablet (Requip)Indicati ons:RLS (restless legs syndrome) TAKE 1 TABLET BY MOUTH ONCE DAILY WITH DINNER. TAKE 1 TO 3 HOURS BEFORE BEDTIME WITH FOOD FOR RESTLESS LEGS 90 Tablet Active Levothyroxine Sodium 112 MCG Oral Tablet (Levoxyl)Indicat ions:Acquired hypothyroidism Take 1 Tablet by mouth every other day. (at least 30 min prior to breakfast or other meds) alternating with 100mcg daily 45 Tablet 024 Active Losartan Potassium 100 MG Oral Tablet (Cozaar)Indicati ons:HTN, goal below 140/90 Take 1 Tablet by mouth in the morning. 90 Tablet Active Additional Information Patient taking differently:100 mg OralHS, Reported on 05/24/2024 Levothyroxine Sodium 100 MCG Oral Tablet (Levoxyl) Take 1 Tablet by mouth every other day. (at least 30 min prior to breakfast or other meds) alternating with 112mcg tablet every other day 45 Tablet 024 Active Rosuvastatin Calcium 10 MG Oral Tablet (Crestor) Take 1 Tablet by mouth in the morning. 90 Tablet 3 024 Active Additional Information Patient taking differently:10 mg OralHS, Reported on 05/24/2024 LORazepam 0.5 MG Oral Tablet (Ativan)Indicati ons:Anxiety [...] as of this encounter (statuses as of 05/27/2024) Active Problems Problem Noted Date Diagnosed Date [...] as of this encounter (statuses as of 05/27/2024) Resolved Problems Problem Noted Date Diagnosed Date [...] as of this encounter (statuses as of 05/27/2024) Immunizations Name Administration Dates Next Due COVID-19 mRNA, LNP-s, No Pre serve, 2-Dose Series ([facility]) 12/24/2020,05/17/2020,04/26/2020 COVID-19, LNP-s, No Preserve , Darryn-sucrose, Ages 12+ ([facility]) 08/24/2021 COVID-19, MRNA-LNP, 24-25, P R, 30MCG/0.3ML, IM, 12YRS AND ABOVE ([facility]) 01/01/2024 Covid-19, Mrna, Lnp-s, Pf, B ivalent, [...] on file documented as of this encounter Miscellaneous Notes * Telephone Encounter - Betty Sorto [facility] [place] - 05/27/2024 11:52 AM EDTSigned Prescriptions: Disp Refills Metoprolol Succinate ER 100 MG Oral Tablet*90 Tab*2 Sig: TAKE 1TABLET BY MOUTH EVERY MORNINGAuthorizing Provider: MARCELLO PHILLIPS User: BETTY SORTO documented in this encounter Plan of Treatment Upcoming Encounters Date Type Department Care Team (Latest Contact Info) Description 05/30/2024 10:15 AM EDT Hospital Encounter ENDO OSSC, Endoscopy Room [facility] [address] [place] [phone] Concetta Edward DO [address] [place] [address] 05/30/2024 10:15 AM EDT - 05/30/2024 10:45 AM EDT Surgery ENDO [facility], Endoscopy Room [facility] [address] [place] [phone] Concetta Edward DO [address] [place] [address] COLONOSCOPY FLEXIBLE PROXIMAL DIAGNOSTIC 06/21/2024 10:20 AM EDT Office Visit [facility] [address] [place] [address] Marcello Phillips DO [address] [place] [address] Scheduled Procedures Name Priority Associated Diagnoses Date/Ti me COLONOSCOPY FLEXIBLE PROXIMAL DIAGNOSTIC Recall Special screening for malignant neoplasms, colon 05/30/2024 10:15 AM EDT Health Maintenance Due Date Last Done Comments Cologuard 1999 Fecal Occult Blood Test 1999 Sigmoidoscopy 1999 Adult Wellness Visit 01/19/2020 Depression Screening 07/04/2020 07/05/2019 COVID-19 Vaccine ( season) 2024 01/01/2024, 12/08/2022, 12/08/2022, Additional history exists Colonoscopy 05/22/2024 05/22/2014, 11/2014, 05/15/2004 Colorectal Cancer Screening 05/22/2024 Diabetic Eye Exam 07/08/2024 07/09/2023, , 08/27/2022, Additional history exists HbA1c 11/24/2024 05/24/2024, 11/14, 05/08/2023, Additional history exists Albumin/Creatinine Ratio 11/26/2024 11/27/2023, 020 11/2022 Diabetic Foot Exam 12/07/2024 12/08/2023, 11/21/2022 Mammogram 12/31/2024 01/01/2024, 1011/2022, 12/22/2022, Additional history exists DTap/Tdap Vaccines (3 [...] this encounter Medical Devices Implanted Type Area Forest Pathologist Device Identifier Shelf Expiration Date Model / Serial / Lot Envista Toric Iol Implanted:Qty: 1 on 11/08/2018 by Luis Daugherty MD at [facility] Right: Eye 10/13/2021 [id number] / / [id number] documented as of this encounter Visit Diagnoses Diagnosis Essential hypertension with goal blood pressure less than 140/90 Special screening for malignant neoplasms, colon documented in this encounter Advance Directives Documents on File Type Date Recorded 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
[2024-06-17] MEDS ORDERED: Nursing to Pharmacy Communication SCH (17:15)
[2024-06-17] MEDS: rOPINIRole HCL 2 MG TABLET PO SCH (17:51)
[2024-06-17] MEDS: INSULIN ASPART PER UNIT CHARGE SC SCH (18:11)
[2024-06-17] MEDS: ceFAZolin 1000MG 1,000 MG/7.5 ML SYR IV SCH (18:16)
[2024-06-17] MEDS: SENNA 8.6 MG TAB PO SCH (20:52)
[2024-06-17] MEDS: DOCUSATE SODIUM 100 MG CAP PO SCH (20:52)
[2024-06-17] MEDS: ASPIRIN 81 MG ECTAB PO SCH (20:53)
[2024-06-17] MEDS: LOSARTAN POTASSIUM 50 MG TAB PO SCH (20:53)
[2024-06-17] MEDS: ROSUVASTATIN CALCIUM 10 MG TAB PO SCH (20:54)
[2024-06-17] MEDS ORDERED: rOPINIRole HCL 2 MG TABLET PO SCH (21:00)
[2024-06-17] MEDS ORDERED: metFORMIN HCL 500 MG TAB PO SCH (21:00)
[2024-06-18 03:11] VITALS: PULSE 71; TEMP 97.9
[2024-06-18] MEDS: LEVOTHYROXINE SODIUM 112 MCG TABLET PO SCH (05:37)
--- NOTE | 2024-06-18 07:08 | Orthopedic Progress Note ---
Date of Service June 18, 2024 Assessment & Plan (1) Status post left hip replacement: Overall she is doing fairly well. She is not having much pain in the left hip. She will be seen by physical therapy today for ambulation and range of motion exercises. She is on aspirin for DVT prophylaxis. She can be discharged to home later today. She will follow-up orthopedics in 2 weeks. Gregory Butcher was seen and examined at bedside this morning. Overall she is doing very well. She is not having much pain in the left hip. She been up and ambulating to the bathroom. She has no complaints.. Review of Systems All systems reviewed & are unremarkable except as noted in HPI & below. Physical Exam On physical exam of the left hip, the dressing is clean and dry. Her leg is out full extension. She has active dorsiflexion plantarflexion of her left ankle.. Results & Data Results & Data Laboratory Results . Diagnostic Findings Postoperative x-rays of the left hip show the prosthesis to be in anatomic alignment without any evidence of fracture complication, or loosening.. PG Care Time/CCT Total # of Minutes Spent Total Time Spent with Patient: Total time spent is greater than 50% in coordination of care (as documented) at patient's floor/unit and/or counseling patient: Coding Level of Care Code 79897 Post Operative Follow-Up Diagnoses Status post left hip replacement Z96.642
--- NOTE | 2024-06-18 07:09 | Discharge Summary ---
Date of Service June 18, 2024 Admission HPI (Per Admitting) Guadalupe is a pleasant 69-year-old female spending with chronic increasing left hip and groin pain. I did a right hip replacement on her in 2019 and she has done well with that. She is now having left hip pain. X-rays and clinical exam have been diagnostic for advanced arthritis of the left hip. After failed conservative treatment, she has elected proceed with a left anterior total of arthroplasty.. Admission Exam (Per Admitting) Physical exam the left hip, she has decreased range of motion. She has pain with internal/external rotation. All of her pains located in the groin.. Principal Diagnosis Same as "Discharge Diagnosis" noted below under Discharge Instructions. Discharge Exam On physical exam of the left hip, the dressing is clean and dry. Her leg is out full extension. She has active dorsiflexion plantarflexion of her left ankle.. Discharge Data Procedures Performed Operation Date: 06/17/24 11:00 Actual Procedures p Left Anterior Total Hip Arthroplasty(Left) - Jeremías Kang DO Ordered Studies 06/17/24 11:00 FL hip LT 1V Routine Hospital Course (1) Status post left hip replacement: On June 17, 2024 Guadalupe arrived at [facility] and underwent a left hip replacement without complication. She had a spinal anesthetic. P ostoperatively, she was started on aspirin for DVT prophylaxis and transferred to the general orthopedic floors. Her hospital course was uneventful. On postop day #1, her vital signs were stable and her pain was well-controlled. She was able to participate well with physical therapy doing ambulation and range of motion exercises. She was then discharged to home. She will follow-up with orthopedics in 2 weeks. PG Care Time/CCT Total # of Minutes Spent Total Time Spent with Patient: Total time spent is greater than 50% in coordination of care (as documented) at patient's floor/unit and/or counseling patient: Discharge Plan Discharge Items Patient Disposition: Home - Self-Care Reason For Visit: Arthritis Hip Left Discharge Diagnosis: Left hip replacement Activity: Per Instructions section Non-emergency contact: Surgeon Call non-emergency contact if: your wound has increased redness and your wound has increased drainage Follow-up/Referrals: Quyen Phillips DO [Primary Care Provider] - Diet: Regular Addtl Attending Provider Instructions: Activity and Therapy Recommendations: * If you are using [facility] then therapy will be provided at your home until they feel you have accomplished all of your goals. * If you are using [facility] then Physical Therapy will be provided until they feel you are ready to start Outpatient Physical Therapy. * If you are not using home therapy then Outpatient Physical Therapy should start about 3-5 days from your day of surgery. Therapy will last about 6-10 weeks * You were shown a series of exercises in the hospital. Do these exercises three times each day including the exercises you were shown in physical therapy. * Get up and walk several times each day.~ For the first four weeks, try not to stand or walk for more than one hour at a time. If you do stand or walk for more than one hour, you will not hurt anything, but your leg will likely swell.~~ * As you feel comfortable, you may change from the walker or crutches to a cane and~then to independent walking. Medications: * Narcotic You will likely be sent home from the hospital with a prescription for the narcotic pain medication that worked best throughout your stay. * Cefadroxil -take the antibiotic twice a day for 10 days to help prevent infection. * Aspirin Most patients will be required to take Aspirin 81mg twice a day for 6 weeks after surgery. This is obtained [id number] and a prescription is not necessary. * Other medications may be prescribed for specific circumstances. If you have any questions, please call the office at . * Resume previous home medications unless otherwise instructed TEDs/Elastic Stockings: The white elastic stockings help limit swelling and prevent blood clots from forming in your legs. The more you wear them, the more they work. Wear them for 2 weeks. Dressing Care: Leave the Silverlon dressing in place for 7 days. After 7 days you may remove the dressing. If the incision is not draining then you may leave the doug open to air. If there is a little bit of drainage or if the doug are getting stuck on your clothing then cover the incision with a dry dressing. The doug will be removed at your 2 week follow-up appointment. Showering: You may shower with the Silverlon dressing in place. Do not let the shower spray hit the dressing directly. Pat the Silverlon dressing dry. If the dressing becomes wet underneath, then simply remove the dressing. Keep the incision dry until you are 7 days out from the day of surgery. After 7 days you may remove the Silverlon dressing and shower with the doug exposed. Let soapy water run over the doug and pat them dry. Do not scrub or soak the incision. Diet: You may resume your previous diet. Things To Watch For: * Drainage from the incision site that occurs more than one week after your surgery. * Increased redness at the incision site. * Fever above 102 degrees Fahrenheit. * Unusual chest pain or shortness of breath. * Call [facility] at with any of the above problems Follow-Up Visit: Follow-up with Dr. Kang's office 2-3 weeks after your day of surgery. We will remove your doug and answer any questions. If you have any additional questions or concerns, Dr Kang is usually in the office at the same time and will be available An appointment was probably scheduled when you signed-up for surgery in the office. If you have any questions call Office Instructions: More detailed instructions as well as Frequently Asked Questions were provided in a folder by our office when you signed-up for surgery. Please review these instructions when you get home. If you have any further questions or concerns, please feel free to call the office at [phone] Pending Studies at Discharge: No Stand-Alone Forms: My [facility] Medications and DC Order Prescriptions: New cefadroxil 500 mg capsule 500 mg PO BID 10 Days Qty: 20 0RF tramadol 50 mg tablet 50 mg PO Q6H PRN (Reason: pain) Qty: 30 0RF Continued losartan 100 mg tablet 100 mg PO QPM omeprazole magnesium [Prilosec OTC] 20 mg tablet,delayed release (DR/EC) 20 mg PO QAM cholecalciferol (vitamin D3) 2,000 unit capsule 2,000 units PO QAM calcium carbonate-vitamin D3 [Caltrate with Vitamin D3] 600 mg(1,500mg) -800 unit tablet 1 tab PO BID Flovent Diskus 100 mcg/actuation blister with device 1 inha INH UD PRN (Reason: ASTHMA) Patient Comments: NO USE OVER LAST MONTH levothyroxine 112 mcg capsule 112 mcg PO UD Rx Instructions: Alternating daily with 100mcg levothyroxine 100 mcg capsule 100 mcg PO UD Rx Instructions: Alternating every other day with 112mcg metformin 500 mg tablet 500 mg PO QPM Ozempic 2 mg/dose (8 mg/3 mL) pen injector 2 mg subcut Q7D Patient Comments: tuesdays Probiotic 3 billion cell capsule 3,000 mmu cells PO DAILY Rx Instructions: administer with a meal rosuvastatin [Crestor] 10 mg tablet 10 mg PO QPM multivitamin [Multiple Vitamins] Tablet 1 tab PO QAM magnesium 250 mg Tablet 250 - 500 mg PO UD Rx Instructions: QAM, alternates dosage lorazepam [Ativan] 0.5 mg Tablet 0.5 mg PO UD PRN (Reason: Anxiety) ropinirole 4 mg Tablet 4 mg PO QPM Rx Instructions: Pt needs requip by 1800 meloxicam 15 mg tablet 15 mg PO QAM metoprolol succinate 100 mg tablet extended release 24 hr 100 mg PO QAM estradiol 0.01 % (0.1 mg/gram) cream 1 applic VAGINAL UD Rx Instructions: 2x per week cranberry 500 mg Capsule 500 mg PO QAM Rx Instructions: administer with meals cyclosporine [Restasis] 0.05 % Dropperette 1 drp OPHTHALMIC (EYE) Q12H Orange 3 Capsule 1,200 mg PO BID hydrochlorothiazide 12.5 mg Tablet 12.5 mg PO QAM PreserVision AREDS-2 250-90-40-1 mg Capsule 1 tab PO BID amoxicillin 500 mg tablet 2,000 mg PO UD PRN (Reason: dental procedure) Rx Instructions: one hour prior to dental procedure aspirin [Adult Aspirin Regimen] 81 mg tablet,delayed release (DR/EC) 81 mg PO BID 42 Days Qty: 0 0RF Discharge Orders: Discharge Order (Routine); Ordered 06/18/24 Ordered By: Jeremías Kang Admission Data Admit Date/Time: 06/17/24 12:59 Attending Provider: Jeremías Kang Admit Provider: Jeremías Kang Primary Care Provider: Quyen Phillips
[2024-06-18 07:54] VITALS: BP 120/75; RESP 16; O2SAT 98
[2024-06-18] MEDS: MULTIVITAMIN TAB PO SCH (08:20)
[2024-06-18] MEDS: METOPROLOL SUCC 50MG EXT REL TAB PO SCH (08:20)
[2024-06-18] MEDS: hydroCHLOROthiazide 25 MG TAB PO SCH (08:20)
[2024-06-18] MEDS: PANTOprazole 40 MG TAB PO SCH (08:21)
[2024-06-19] MEDS ORDERED: LEVOTHYROXINE SODIUM 100 MCG TABLET PO SCH (06:30)
== END 2024-06-18 10:49 | disposition home or self-care (01) ==
LOC: 3N 09:01 → ASU 09:01